=== PATIENT | male | born 1935 | race Caucasian/White ===

== ENCOUNTER 2019-11-23 13:17 | Emergency (ER) | payer MEDICARE, BC ==
[2019-11-23] MEDS ORDERED: Sulfamethoxazole/Trimethoprim 800-160 MG Tab PO ONE (14:05)
--- NOTE | 2019-11-23 14:11 | EDM.PDOC ---
ED HPI GENERAL MEDICAL PROBLEM - General Chief Complaint: Eye Problems Stated Complaint: EYES CHECKED FOR INFECTION Time Seen by Provider: 11/23/19 13:50 Source of Information: Reports: Patient, RN. 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 He was given a couple days of cephalexin earlier, he is not on this now. He doesn't think the actual surgical wound looks that much different. He denies fevers. He tried unsuccessfully to reach the doctor who did his surgery. Onset: Gradual Duration: Day(s): (1+), Getting Worse Location: Reports: Head, Face Quality: Reports: Other (Denies pain) Severity: Mild Improves with: Reports: None Worsens with: Reports: Other (time) Context: Reports: Other (See HPI) Associated Symptoms: Reports: No Other Symptoms. Denies: Fever/Chills Treatments DIRECTOR OF STUDENT FINANCIAL SERVICES: Reports: Other (see below) (none) ED ROS GENERAL - Review of Systems Review Of Systems: See Below Constitutional: Reports: No Symptoms. Denies: Fever, Chills HEENT: Reports: No Symptoms Respiratory: Reports: No Symptoms Cardiovascular: Reports: No Symptoms Skin: Reports: Erythema (around scalp surgical wound site.), Wound (surgical on anterior scalp) ED EXAM GENERAL W FULL EYE - Physical Exam Exam: See Below Exam Limited By: No Limitations General Appearance: Alert, WD/WN, No Apparent Distress Eye Exam: Bilateral Eye: Normal Inspection, PERRL, Other (Really don't see any significant periorbital edema) Eyelids: Bilateral: Normal Appearance Ears: Normal External Exam, Normal Canal, Hearing Grossly Normal Nose: Normal Inspection, No Blood Throat/Mouth: Normal Inspection Head: Other (there is surrounding redness at site of surgical incision anterior scalp. Posteriorly this area looks/feels puffy. ) ED EYE w/ Add Procedure - Additional/Other Procedure(s) Other (Free Text) Procedure(s) [Text1]: I attempted to aspirate the area of puffiness on the back half of his surgical wound after betadine prep. No fluid was successfully aspirated, however. Course - Vital Signs Last Recorded V/S: Last Vital Signs Temp 36.6 C 11/23/19 13:45 Pulse 59 L 11/23/19 13:45 Resp 17 11/23/19 13:45 BP 137/68 11/23/19 13:45 Pulse Ox 97 11/23/19 13:45 - Orders/Labs/Meds Orders: Active Orders 24 hr Category Date Time Status Sulfamethoxazole/Trimethoprim [Septra DS] Med 11/23/19 14:05 Once 1 tab PO ONETIME ONE Departure - Departure Time of Disposition: 14:15 Disposition: Home, Self-Care 01 Condition: Fair Clinical Impression: Infection of scalp - Discharge Information *PRESCRIPTION DRUG MONITORING PROGRAM REVIEWED*: Not Applicable *COPY OF PRESCRIPTION DRUG MONITORING REPORT IN PATIENT TREE: Not Applicable Referrals: Néstor Vasquez MD [Primary Care Provider] - Additional Instructions: Take TMP/SMZ every 12 hrs for infection control. Use acetaminophen for pain relief. Keep warm compresses on area several times per day. Call your doctor in [place] who did your surgery to report your situation on Sunday. Return if worse in the interim. Sepsis Event Note (ED) - Evaluation Sepsis Screening Result: No Definite Risk - Focused Exam Vital Signs: Vital Signs Temp Pulse Resp BP Pulse Ox 11/23/19 13:45 36.6 C 59 L 17 137/68 97 - My Orders Last 24 Hours: My Active Orders 11/23/19 14:05 Sulfamethoxazole/Trimethoprim [Septra DS] 1 tab PO ONETIME ONE - Assessment/Plan Last 24 Hours: My Active Orders 11/23/19 14:05 Sulfamethoxazole/Trimethoprim [Septra DS] 1 tab PO ONETIME ONE
== END 2019-11-23 14:22 | disposition home or self-care (01) ==
LOC: FB.ED 13:17
DX: T81.40XA Infection following a procedure, unspecified, initial encounter (principal)
CPT/HCPCS: 99283; A9270

== ENCOUNTER 2020-03-16 13:54 | Emergency (ER) | payer MEDICARE, BC ==
--- NOTE | 2020-03-16 15:13 | EDM.PDOC ---
ED HPI GENERAL MEDICAL PROBLEM - General Chief Complaint: Gastrointestinal Problem Stated Complaint: constipation Time Seen by Provider: 03/16/20 14:45 Source of Information: Reports: Patient History Limitations: Reports: No Limitations - History of Present Illness INITIAL COMMENTS - FREE TEXT/NARRATIVE: pt states he has had problems with bowels for a long time , has used multiple medications OTC and symptoms not improving this time has not had BM for ? 3 weeks no vomiting has nausea minimal abd pain States he has not used supposity or enema recently Onset: Today, Gradual Onset Date: 02/24/20 Duration: Waxing/Waning Location: Reports: Abdomen Quality: Reports: Ache, Dull Severity: Moderate Improves with: Reports: None Worsens with: Reports: None Treatments MANAGER DIABETES: Reports: Other (see below) - Related Data Allergies Allergy/AdvReac Type Severity Reaction Status Date / Time No Known Allergies Allergy Verified 11/23/19 19:37 Home Meds: Home Meds Sulfamethoxazole/Trimethoprim [Bactrim Ds Tablet] 1 each PO Q12H #14 tablet 11/23/19 [Rx] Magnesium Citrate 296 ml PO ONETIME #296 solution 03/16/20 [Rx] bisacodyL [Dulcolax] 10 mg RC BEDTIME #30 supp.rect 03/16/20 [Rx] Past Medical History Cardiovascular History: Reports: Hypertension Respiratory History: Reports: Other (See Below) Other Respiratory History: former smoker since he was 16 years old. Genitourinary History: Reports: Other (See Below) Other Genitourinary History: prostate cancer. Oncologic (Cancer) History: Reports: Prostate, Other (See Below) Other Oncologic History: melanoma Dermatologic History: Reports: Melanoma Social & Family History - Family History Family Medical History: No Pertinent Family History - Caffeine Use Caffeine Use: Reports: Coffee, Soda ED ROS GENERAL - Review of Systems Review Of Systems: See Below Constitutional: Reports: No Symptoms HEENT: Reports: No Symptoms Respiratory: Reports: No Symptoms Cardiovascular: Reports: No Symptoms Endocrine: Reports: No Symptoms GI/Abdominal: Reports: Constipation, Decreased Appetite, Flatus. Denies: Abdominal Pain, Anorexia, Diarrhea : Reports: No Symptoms Musculoskeletal: Reports: No Symptoms Skin: Reports: No Symptoms Neurological: Reports: No Symptoms Psychiatric: Reports: No Symptoms ED EXAM, GI/ABD - Physical Exam Exam: See Below Exam Limited By: No Limitations General Appearance: Alert, WD/WN, No Apparent Distress Eyes: Bilateral: Abnormal EOM Ears: Normal External Exam Nose: Normal Inspection Throat/Mouth: Normal Oropharynx Head: Atraumatic, Normocephalic Neck: Supple, Non-Tender Respiratory/Chest: Lungs Clear, No Accessory Muscle Use Cardiovascular: Regular Rate, Rhythm, No JVD GI/Abdominal Exam: Soft, Non-Tender, Abnormal Bowel Sounds (hypoactive bowel sounds). No: Guarding, Rigid Neurological: Alert, Oriented, CN II-XII Intact Psychiatric: Normal Affect Skin Exam: Dry, Intact Course - Orders/Labs/Meds Meds: Medications Discontinued Medications Generic Name Dose Route Start Last Admin Trade Name Freq PRN Reason Stop Dose Admin Bisacodyl 10 mg 03/16/20 15:12 03/16/20 15:44 Dulcolax RECTAL 03/16/20 15:13 10 mg ONETIME ONE Administration Mineral Oil 133 ml 03/16/20 15:12 03/16/20 16:35 Mineral Oil Enema RECTAL 03/16/20 15:13 1 bottle ONETIME ONE Administration - Re-Assessments/Exams Free Text/Narrative Re-Assessment/Exam: 03/16/20 17:13 pt was given a suppository initially , was not able to go , then he was given a mineral oil enema , was able to go a small amount had no abd pain , no nausea or vomiting pt was encouraged to get mag citrate and take orally , use dulcolax supp at bedtime He did get some relieve before discharge Departure - Departure Time of Disposition: 17:17 Disposition: Home, Self-Care 01 Condition: Fair Clinical Impression: Constipation by delayed colonic transit - Discharge Information *PRESCRIPTION DRUG MONITORING PROGRAM REVIEWED*: Not Applicable *COPY OF PRESCRIPTION DRUG MONITORING REPORT IN PATIENT TREE: Not Applicable Prescriptions: Magnesium Citrate 296 ml PO ONETIME #296 solution Instructions: Constipation, Adult, [id number], Chronic Constipation Referrals: Néstor Vasquez MD [Primary Care Provider] - Forms: ED Department Discharge Additional Instructions: 1) Increase fiber intake with carrot puree and green apple smoothies 2) Use Dulcolax suppository once at bedtime daily 3) discuss further with your PCP
[2020-03-16] MEDS: Bisacodyl 10 MG Supp RECTAL ONE (15:44)
[2020-03-16] MEDS: Mineral Oil 133 ML BOTTLE RECTAL ONE (16:35)
--- NOTE | 2020-03-16 16:47 | CR ---
INDICATION: Constipation for 3 weeks. ABDOMEN TWO VIEW: Five images of the abdomen in supine and upright projections were obtained 03/16/[address] scan of the abdomen of 12/29/07. The pattern of gas and feces is fairly nonspecific. Relatively moderate amount of stool is noted in the colon with no evidence of a mechanically obstructive process or gross free air. No mass lesions or organomegaly were identified. What appeared to be 3 clips are noted in the area of the prostate. IMPRESSION: Nonacute abdomen. MTDD
== END 2020-03-16 17:15 | disposition home or self-care (01) ==
LOC: FB.ED 13:54
DX: K59.01 Slow transit constipation (principal); I10 Essential (primary) hypertension; Z87.891 Personal history of nicotine dependence
CPT/HCPCS: 74019; 99283; A9270-GY

== ENCOUNTER 2020-04-04 15:30 | Inpatient (IN) | payer MEDICARE, BC ==
[2020-04-04] MEDS ORDERED: HYDROmorphone 2 MG/ML SDV IVPUSH ONE ×3 (16:35→20:54)
[2020-04-04] MEDS ORDERED: Ondansetron 4 MG/2 ML SDV IVPUSH ONE (16:35)
[2020-04-04] MEDS ORDERED: Sodium Chloride 0.9% 1,000 ML IV ONE (16:35)
--- NOTE | 2020-04-04 18:15 | EDM.PDOC ---
ED HPI GENERAL MEDICAL PROBLEM - General Chief Complaint: General Stated Complaint: FELL Time Seen by Provider: 04/04/20 16:00 Source of Information: Reports: Patient History Limitations: Reports: No Limitations - History of Present Illness INITIAL COMMENTS - FREE TEXT/NARRATIVE: c/o LBP on right pt with fall yesterday, in bedroom leaning against wall, sat down, however he thought the bed was behind him and it was not, has had persisted pain in the R lower back in the midscapular line without radiation has picked up 90 tabs of hc/apap 10/325 mg in the past 9d, pain was still 6/10 on arrival at ED, altho resolved almost completely after Dilaudid 0.5 mg IV pt given 1 liters NS as skin turgor was dec'd old CT images of abd/pelvis from 2m ago showed a large blastic lesion at L4 pt states he has prostate cancer 1y with bone meds, sees oncology in [place], getting Envase IV q3w Lower Back Pain Score (Numeric/FACES): 5 - Related Data Allergies Allergy/AdvReac Type Severity Reaction Status Date / Time No Known Allergies Allergy Verified 11/23/19 19:37 Home Meds: Home Meds Aspirin [Adult Low Dose Aspirin EC] 81 mg PO DAILY 04/05/20 [History] Hydrocodone/Acetaminophen [Hydrocodon-Acetaminophn 10-325] 1 tab PO Q6H PRN 04/05/20 [History] Lactulose 20 gm PO BID PRN 04/05/20 [History] Metoprolol Tartrate 50 mg PO BID 04/05/20 [History] atorvaSTATin [Lipitor] 20 mg PO BEDTIME 04/05/20 [History] Past Medical History Cardiovascular History: Reports: Hypertension Respiratory History: Reports: Other (See Below) Other Respiratory History: former smoker since he was 16 years old. Genitourinary History: Reports: Other (See Below) Other Genitourinary History: prostate cancer. Oncologic (Cancer) History: Reports: Liver, Lung, Prostate, Other (See Below) Other Oncologic History: melanoma Dermatologic History: Reports: Melanoma - Infectious Disease History Infectious Disease History: Reports: Chicken Pox Social & Family History - Family History Family Medical History: No Pertinent Family History - Caffeine Use Caffeine Use: Reports: Coffee ED ROS GENERAL - Review of Systems Review Of Systems: See Below Constitutional: Reports: No Symptoms HEENT: Reports: No Symptoms Respiratory: Reports: No Symptoms Cardiovascular: Reports: No Symptoms Endocrine: Reports: No Symptoms GI/Abdominal: Reports: No Symptoms : Reports: No Symptoms Musculoskeletal: Reports: Back Pain Skin: Reports: No Symptoms Neurological: Reports: No Symptoms Psychiatric: Reports: No Symptoms Hematologic/Lymphatic: Reports: No Symptoms Immunologic: Reports: No Symptoms ED EXAM, GENERAL - Physical Exam Exam: See Below Exam Limited By: No Limitations General Appearance: Alert, WD/WN, No Apparent Distress Nose: Normal Inspection, Normal Mucosa Throat/Mouth: Normal Inspection, Normal Lips, Normal Teeth, Normal Gums, Normal Oropharynx Head: Atraumatic, Normocephalic Neck: Normal Inspection, Supple, Non-Tender, Full Range of Motion Respiratory/Chest: No Respiratory Distress, Lungs Clear, Normal Breath Sounds, No Accessory Muscle Use Cardiovascular: Regular Rate, Rhythm, No Edema GI/Abdominal: Soft, Non-Tender, No Distention Back Exam: Normal Inspection, Full Range of Motion Extremities: Normal Inspection, Non-Tender, Other (dec'd turgor UEs with 0.5 sec tenting b/l) Neurological: Alert, Oriented, CN II-XII Intact, Normal Cognition, No Motor/Sensory Deficits Psychiatric: Normal Affect Skin Exam: Warm, Dry, Intact, Normal Color, No Rash Lymphatic: No Adenopathy Course - Vital Signs Last Recorded V/S: Last Vital Signs Temp 36.6 C 04/05/20 13:00 Pulse 98 04/05/20 13:00 Resp 18 04/05/20 13:00 BP 122/65 04/05/20 13:00 Pulse Ox 93 L 04/05/20 13:00 - Orders/Labs/Meds Orders: Active Orders 24 hr Category Date Time Status Admission Status [Patient Status] [ADT] Routine ADT 04/04/20 19:01 Active Lumbar Spine wo Cont [CT] Stat Exams 04/04/20 17:17 Taken Sodium Chloride 0.9% [Saline Flush] Med 04/04/20 19:13 Active 10 ml FLUSH ASDIRECTED PRN Medication Orders Acetaminophen (Tylenol) 650 mg PO Q6H MELANIE Last Admin: 04/05/20 14:26 Dose: 650 mg Documented by: DIFFCAL Aspirin (Halfprin) 81 mg PO DAILY MELANIE Atorvastatin Calcium (Lipitor) 20 mg PO BEDTIME MELANIE Cyclobenzaprine HCl (Flexeril) 5 mg PO TID PRN PRN Reason: Muscle Spasm Dexamethasone (Dexamethasone) 4 mg PO DAILY [facility] Last Admin: 04/05/20 09:21 Dose: 4 mg Documented by: ALEAH Enoxaparin Sodium (Lovenox) 30 mg SUBCUT Q24H [facility] Last Admin: 04/04/20 21:41 Dose: 30 mg Documented by: CHIP Fentanyl (Duragesic) 12 mcg TRDERM Q72H [facility] Last Admin: 04/05/20 09:21 Dose: 12 mcg Documented by: ALEAH Dextrose/Sodium Chloride (Dextrose 5%-1/2 Ns) 1,000 mls @ 75 mls/hr IV ASDIRECTED [facility] Last Admin: 04/04/20 21:40 Dose: 75 mls/hr Documented by: CHIP Magnesium Hydroxide (Milk Of Magnesia) 30 ml PO Q12H PRN PRN Reason: Constipation Metoprolol Tartrate (Lopressor) 50 mg PO BID [facility] Morphine Sulfate (Morphine 10 Mg/0.5 Ml Oral Syringe) 5 mg SL Q2H PRN PRN Reason: SEVERE PAIN (7-10/10) Ondansetron HCl (Zofran) 4 mg IV Q4H PRN PRN Reason: Nausea/Vomiting Senna/Docusate Sodium (Senna Plus) 1 tab PO BID [facility] Last Admin: 04/05/20 11:02 Dose: 1 tab Documented by: ALEAH Sodium Chloride (Saline Flush) 10 ml FLUSH ASDIRECTED PRN PRN Reason: Keep Vein Open Last Admin: 04/04/20 19:13 Dose: 10 ml Documented by: JANETTE Labs: Laboratory Tests 04/04/20 04/04/20 04/04/20 Range/Units 16:45 16:45 16:45 WBC 6.0 (3.2-10.1) x10-3/uL RBC 3.66 L (3.90-5.90) x10(6)uL Hgb 10.3 L (12.9-17.7) g/dL Hct 32.8 L (38.3-50.1) % MCV 89.8 (80.8-98.7) fL MCH 28.2 (27.0-33.3) pg MCHC 31.4 (28.7-35.3) g/dL RDW 16.5 H (12.4-15.0) % Plt Count 309 (117-477) x10(3)uL MPV 7.7 (6.7-11.0) fL Neut % (Auto) 76.4 H (40.3-71.8) % Lymph % (Auto) 4.8 L (15.8-45.3) % Cedar % (Auto) 17.8 H (5.5-15.2) % Eos % (Auto) 0.7 (0.1-6.8) % Baso % (Auto) 0.3 (0.3-3.8) % Neut # (Auto) 4.6 (1.7-6.9) x10-3/uL Lymph # (Auto) 0.3 L (0.5-4.5) x10-3/uL Cedar # (Auto) 1.1 (0.0-1.2) x10-3/uL Eos # (Auto) 0.0 (0.0-0.6) x10-3/uL Baso # (Auto) 0.0 (0.0-0.3) x10-3/uL Sodium 136 (135-145) mmol/L Potassium 4.5 (3.5-5.3) mmol/L Chloride 103 (100-110) mmol/L Carbon Dioxide 23 (21-32) mmol/L BUN 25 H (7-18) mg/dL Creatinine 2.4 H* (0.70-1.30) mg/dL Est Cr Clr Drug Dosing TNP Estimated GFR (MDRD) 26 L (>60) BUN/Creatinine Ratio 10.4 (9-20) Glucose 107 (80-116) mg/dL Calcium 8.4 L (8.6-10.2) mg/dL Total Bilirubin 0.4 (0.1-1.3) mg/dL AST 25 (5-25) IU/L ALT 18 (12-36) U/L Alkaline Phosphatase 72 (56-112) IU/L C-Reactive Protein 8.7 H* (0.5-0.9) mg/dL Total Protein 7.1 (6.0-8.0) g/dL Albumin 2.9 L (3.2-4.6) g/dL Globulin 4.2 g/dL Albumin/Globulin Ratio 0.7 SARS-CoV-2 RNA (ERIK) (NEGATIVE) 04/04/20 Range/Units 19:05 WBC (3.2-10.1) x10-3/uL RBC (3.90-5.90) x10(6)uL Hgb (12.9-17.7) g/dL Hct (38.3-50.1) % MCV (80.8-98.7) fL MCH (27.0-33.3) pg MCHC (28.7-35.3) g/dL RDW (12.4-15.0) % Plt Count (117-477) x10(3)uL MPV (6.7-11.0) fL Neut % (Auto) (40.3-71.8) % Lymph % (Auto) (15.8-45.3) % Cedar % (Auto) (5.5-15.2) % Eos % (Auto) (0.1-6.8) % Baso % (Auto) (0.3-3.8) % Neut # (Auto) (1.7-6.9) x10-3/uL Lymph # (Auto) (0.5-4.5) x10-3/uL Cedar # (Auto) (0.0-1.2) x10-3/uL Eos # (Auto) (0.0-0.6) x10-3/uL Baso # (Auto) (0.0-0.3) x10-3/uL Sodium (135-145) mmol/L Potassium (3.5-5.3) mmol/L Chloride (100-110) mmol/L Carbon Dioxide (21-32) mmol/L BUN (7-18) mg/dL Creatinine (0.70-1.30) mg/dL Est Cr Clr Drug Dosing Estimated GFR (MDRD) (>60) BUN/Creatinine Ratio (9-20) Glucose (80-116) mg/dL Calcium (8.6-10.2) mg/dL Total Bilirubin (0.1-1.3) mg/dL AST (5-25) IU/L ALT (12-36) U/L Alkaline Phosphatase (56-112) IU/L C-Reactive Protein (0.5-0.9) mg/dL Total Protein (6.0-8.0) g/dL Albumin (3.2-4.6) g/dL Globulin g/dL Albumin/Globulin Ratio SARS-CoV-2 RNA (ERIK) Negative (NEGATIVE) Meds: Medications Generic Name Dose Route Start Last Admin Trade Name Freq PRN Reason Stop Dose Admin Acetaminophen 650 mg 04/05/20 15:00 04/05/20 14:26 Tylenol PO 650 mg Q6H MELANIE Administration Aspirin 81 mg 04/06/20 09:00 Halfprin PO DAILY [facility] Atorvastatin Calcium 20 mg 04/05/20 21:00 Lipitor PO BEDTIME MELANIE Cyclobenzaprine HCl 5 mg 04/05/20 08:34 Flexeril PO TID PRN Muscle Spasm Dexamethasone 4 mg 04/05/20 09:00 04/05/20 09:21 Dexamethasone PO 4 mg DAILY MELANIE Administration Enoxaparin Sodium 30 mg 04/04/20 21:30 04/04/20 21:41 Lovenox SUBCUT 30 mg Q24H MELANIE Administration Fentanyl 12 mcg 04/05/20 09:00 04/05/20 09:21 Duragesic TRDERM 12 mcg Q72H MELANIE Administration Dextrose/Sodium Chloride 1,000 mls @ 75 mls/hr 04/04/20 21:00 04/04/20 21:40 Dextrose 5%-1/2 Ns IV 75 mls/hr ASDIRECTED MELANIE Administration Magnesium Hydroxide 30 ml 04/04/20 20:58 Milk Of Magnesia PO Q12H PRN Constipation Metoprolol Tartrate 50 mg 04/05/20 21:00 Lopressor PO BID MELANIE Morphine Sulfate 5 mg 04/05/20 08:38 Morphine 10 Mg/0.5 Ml Oral Syringe SL Q2H PRN SEVERE PAIN (7-10/10) Ondansetron HCl 4 mg 04/04/20 20:58 Zofran IV Q4H PRN Nausea/Vomiting Senna/Docusate Sodium 1 tab 04/05/20 10:00 04/05/20 11:02 Senna Plus PO 1 tab BID MELANIE Administration Sodium Chloride 10 ml 04/04/20 19:13 04/04/20 19:13 Saline Flush FLUSH 10 ml ASDIRECTED PRN Administration Keep Vein Open Discontinued Medications Generic Name Dose Route Start Last Admin Trade Name Otilio PRN Reason Stop Dose Admin Acetaminophen 1,000 mg 04/04/20 21:00 04/05/20 01:37 Tylenol PO Not Given QID MELANIE Acetaminophen 1,000 mg 04/04/20 21:00 04/05/20 09:22 Tylenol Extra Strength PO 1,000 mg Q6H MELANIE Administration Bisacodyl 10 mg 04/05/20 09:45 Dulcolax RECTAL 04/05/20 09:46 ONETIME ONE Cyclobenzaprine HCl 5 mg 04/04/20 21:00 04/04/20 21:40 Flexeril PO 5 mg TID [facility] Administration Hydromorphone HCl 0.5 mg 04/04/20 16:35 04/04/20 16:47 Dilaudid IVPUSH 04/04/20 16:36 0.5 mg ONETIME ONE Administration Hydromorphone HCl 0.5 mg 04/04/20 19:03 04/04/20 19:12 Dilaudid IVPUSH 04/04/20 19:04 0.5 mg ONETIME ONE Administration Hydromorphone HCl 0.5 mg 04/04/20 20:54 04/04/20 21:14 Dilaudid IVPUSH 04/04/20 20:55 0.5 mg ONETIME ONE Administration Hydromorphone HCl 0.5 mg 04/04/20 20:58 Dilaudid IVPUSH Q2H PRN Pain (severe 7-10) Sodium Chloride 1,000 mls @ 999 mls/hr 04/04/20 16:35 04/04/20 16:48 Normal Saline IV 04/04/20 17:35 999 mls/hr .BOLUS ONE Administration Ondansetron HCl 4 mg 04/04/20 16:35 04/04/20 16:48 Zofran IVPUSH 04/04/20 16:36 4 mg ONETIME ONE Administration Oxycodone HCl 5 mg 04/04/20 21:00 04/05/20 01:36 Oxycodone PO Not Given QID [facility] Oxycodone HCl 5 mg 04/04/20 22:00 04/05/20 03:17 Oxycodone PO 5 mg Q6H [facility] Administration Zolpidem Tartrate 5 mg 04/04/20 20:58 Ambien PO BEDTIME PRN Sleep - Re-Assessments/Exams Free Text/Narrative Re-Assessment/Exam: 04/04/20 19:[address] of l-spine reviewed, no acute fx on l-spine, 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, seen before on CT 2m ago pt said he cannot go home, pain is too severe, pain 2/10 at rest, inc to 9/10 when he moves, does not think he can stand, much less walk, looks uncomfortable d/w so [facility] at [phone], his sister Tara was with him (who had called as well) Reyes lives near pt but not with him, Tara lives in [place] no plans currently for halfway management CT chest 2m ago did show a spiculated mass in RUL along with another mass just above the R hilum as per Reyes the lung CA is thought to be a primary with met to L4 coming from the lung per Reyes, dx with lung CA "this fall" and dx with prostate CA 1y ago Departure - Departure Time of Disposition: 19:03 Disposition: Home, Self-Care 01 Condition: Fair Clinical Impression: Acute low back pain due to trauma, Moderate dehydration, Acute renal insufficiency, Lung cancer, Prostate cancer, Bone metastases, Hypoalbuminemia, Elevated C-reactive protein - Discharge Information *PRESCRIPTION DRUG MONITORING PROGRAM REVIEWED*: Yes *COPY OF PRESCRIPTION DRUG MONITORING REPORT IN PATIENT TREE: No Sepsis Event Note (ED) - Evaluation Sepsis Screening Result: No Definite Risk - My Orders Last 24 Hours: My Active Orders 04/04/20 17:17 Lumbar Spine wo Cont [CT] Stat 04/04/20 19:01 Admission Status [Patient Status] [ADT] Routine 04/04/20 19:13 Sodium Chloride 0.9% [Saline Flush] 10 ml FLUSH ASDIRECTED PRN - Assessment/Plan Last 24 Hours: My Active Orders 04/04/20 17:17 Lumbar Spine wo Cont [CT] Stat 04/04/20 19:01 Admission Status [Patient Status] [ADT] Routine 04/04/20 19:13 Sodium Chloride 0.9% [Saline Flush] 10 ml FLUSH ASDIRECTED PRN
[2020-04-04] MEDS ORDERED: Sodium Chloride 0.9% 10 ML Syringe FLUSH PRN (19:13)
[2020-04-04] MEDS ORDERED: HYDROmorphone 2 MG/ML SDV IVPUSH PRN (20:58)
[2020-04-04] MEDS ORDERED: Zolpidem 5 MG Tab PO PRN (20:58)
[2020-04-04] MEDS ORDERED: Magnesium Hydroxide 400 MG/5 ML Susp 30 ML Cup PO PRN (20:58)
[2020-04-04] MEDS ORDERED: Ondansetron 4 MG/2 ML SDV IV PRN (20:58)
[2020-04-04] MEDS ORDERED: Acetaminophen 325 MG Tab PO SCH (21:00)
[2020-04-04] MEDS ORDERED: Cyclobenzaprine 10 MG Tab PO SCH (21:00)
[2020-04-04] MEDS ORDERED: oxyCODONE 5 MG Tab PO SCH (21:00)
[2020-04-04] MEDS ORDERED: Dextrose 5%-0.45% NaCl 1,000 ML IV SCH (21:00)
[2020-04-04] MEDS: Enoxaparin 30 MG/0.3 ML Syringe SUBCUT SCH (21:41)
[2020-04-04] MEDS: oxyCODONE 5 MG Tab PO SCH (21:42)
[2020-04-04] MEDS: Acetaminophen 500 MG Tab PO SCH (21:43)
[2020-04-05] MEDS: oxyCODONE 5 MG Tab PO SCH (03:17)
[2020-04-05] MEDS: Acetaminophen 500 MG Tab PO SCH ×2 (03:17→09:22)
[2020-04-05] MEDS ORDERED: Morphine 10 MG/0.5 ML Oral Syringe SL PRN (08:38)
[2020-04-05] MEDS ORDERED: fentaNYL 12 MCG/HR Transdermal Patch TRDERM SCH (09:00)
[2020-04-05] MEDS: Dexamethasone 4 MG Tab PO SCH (09:21)
[2020-04-05] MEDS ORDERED: Bisacodyl 10 MG Supp RECTAL ONE (09:45)
--- NOTE | 2020-04-05 10:05 | PCM.HP.2 ---
H&P History of Present Illness - General Date of Service: 04/05/20 Admit Problem/Dx: Admission Diagnosis/Problem Admission Diagnosis/Problem Low back pain without sciatica Source of Information: Patient, EMS Notes Reviewed - History of Present Illness Initial Comments - Free Text/Narative: Leonardo had fallen on Sunday, thought the bed was behind him and was not, came in by ambulance to ER because pain and could not walk. He has history of prostate cancer, had radiation. Was diagnosed with stage 4 Lung cancer Feb 2019, mets to the bone specifically L4 vertebrae was found about 2 months ago. He is getting Envase every 3 weeks per ER, Henry states its been a couple of months, and last 6-7 days. He does have some trouble with dates he said. He denies any headaches, nasal congestion, sore throat, cough, shortness of breath, chest pain. No nausea or vomiting. Has been constipated, last bowel movement was been about 5 days. Uses Lactulose sporadically, states he gets better results from enemas. Denies any rashes currently. No frequency, dysuria or hematuria. Some peripheral edema in his ankles which states is chronic. He lives at home alone, his children all have families of their own, so he is not sure if they can help him at home or not. Lower Back Pain Score (Numeric/FACES): 6 - Related Data Allergies/Adverse Reactions: Allergies Allergy/AdvReac Type Severity Reaction Status Date / Time No Known Allergies Allergy Verified 11/23/19 19:37 Home Medications: Home Meds Aspirin [Adult Low Dose Aspirin EC] 81 mg PO DAILY 04/05/20 [History] Hydrocodone/Acetaminophen [Hydrocodon-Acetaminophn 10-325] 1 tab PO Q6H PRN 04/05/20 [History] Lactulose 20 gm PO BID PRN 04/05/20 [History] Metoprolol Tartrate 50 mg PO BID 04/05/20 [History] atorvaSTATin [Lipitor] 20 mg PO BEDTIME 04/05/20 [History] Past Medical History Other HEENT History: wears glasses Cardiovascular History: Reports: Hypertension Respiratory History: Reports: Other (See Below) Other Respiratory History: former smoker since he was 16 years old. Genitourinary History: Reports: Other (See Below) Other Genitourinary History: prostate cancer. Oncologic (Cancer) History: Reports: Liver, Lung, Prostate, Other (See Below) Other Oncologic History: melanoma Dermatologic History: Reports: Melanoma - Infectious Disease History Infectious Disease History: Reports: Chicken Pox Social & Family History - Family History Family Medical History: No Pertinent Family History - Caffeine Use Caffeine Use: Reports: Coffee - Recreational Drug Use Recreational Drug Use: No H&P Review of Systems - Review of Systems: Review Of Systems: Comprehensive ROS is negative, except as noted in HPI. Exam - Exam Exam: See Below - Vital Signs Vital Signs: Last Vital Signs Temp 98 F 04/05/20 03:39 Pulse 94 04/05/20 03:39 Resp 18 04/05/20 03:39 BP 143/78 H 04/05/20 03:39 Pulse Ox 93 L 04/05/20 03:39 Weight: 188 lb 8 oz - Exam General: Alert, Oriented, Cooperative HEENT: PERRLA, Conjunctiva Clear, EOMI, Hearing Intact, Mucosa Moist & [place] Neck: Supple, Trachea Midline. No: Lymphadenopathy Lungs: Clear to Auscultation, Normal Respiratory Effort Cardiovascular: Regular Rate, Regular Rhythm GI/Abdominal Exam: Normal Bowel Sounds, Soft, Non-Tender, No Distention (Male) Exam: Deferred Rectal (Males) Exam: Deferred Extremities: Normal Capillary Refill, Pedal Edema (1+ BLE at ankles) Peripheral Pulses: 2+: Radial (L), Radial (R) Psychiatric: Alert, Normal Affect, Normal Mood - Patient Data Lab Results Last 24 hrs: Laboratory Results - last 24 hr 04/04/20 04/04/20 04/04/20 Range/Units 16:45 16:45 16:45 WBC 6.0 (3.2-10.1) x10-3/uL RBC 3.66 L (3.90-5.90) x10(6)uL Hgb 10.3 L (12.9-17.7) g/dL Hct 32.8 L (38.3-50.1) % MCV 89.8 (80.8-98.7) fL MCH 28.2 (27.0-33.3) pg MCHC 31.4 (28.7-35.3) g/dL RDW 16.5 H (12.4-15.0) % Plt Count 309 (117-477) x10(3)uL MPV 7.7 (6.7-11.0) fL Neut % (Auto) 76.4 H (40.3-71.8) % Lymph % (Auto) 4.8 L (15.8-45.3) % [place] % (Auto) 17.8 H (5.5-15.2) % Eos % (Auto) 0.7 (0.1-6.8) % Baso % (Auto) 0.3 (0.3-3.8) % Neut # (Auto) 4.6 (1.7-6.9) x10-3/uL Lymph # (Auto) 0.3 L (0.5-4.5) x10-3/uL [place] # (Auto) 1.1 (0.0-1.2) x10-3/uL Eos # (Auto) 0.0 (0.0-0.6) x10-3/uL Baso # (Auto) 0.0 (0.0-0.3) x10-3/uL Sodium 136 (135-145) mmol/L Potassium 4.5 (3.5-5.3) mmol/L Chloride 103 (100-110) mmol/L Carbon Dioxide 23 (21-32) mmol/L BUN 25 H (7-18) mg/dL Creatinine 2.4 H* (0.70-1.30) mg/dL Est Cr Clr Drug Dosing TNP Estimated GFR (MDRD) 26 L (>60) BUN/Creatinine Ratio 10.4 (9-20) Glucose 107 (80-116) mg/dL Calcium 8.4 L (8.6-10.2) mg/dL Total Bilirubin 0.4 (0.1-1.3) mg/dL AST 25 (5-25) IU/L ALT 18 (12-36) U/L Alkaline Phosphatase 72 (56-112) IU/L C-Reactive Protein 8.7 H* (0.5-0.9) mg/dL Total Protein 7.1 (6.0-8.0) g/dL Albumin 2.9 L (3.2-4.6) g/dL Globulin 4.2 g/dL Albumin/Globulin Ratio 0.7 Urine Color (YELLOW) Urine Appearance (CLEAR) Urine pH (5.0-6.5) Ur Specific Tyler (1.010-1.025) Urine Protein (NEGATIVE) mg/dL Urine Glucose (UA) (NORMAL) mg/dL Urine Ketones (NEGATIVE) mg/dL Urine Occult Blood (NEGATIVE) Urine Nitrite (NEGATIVE) Urine Bilirubin (NEGATIVE) Urine Urobilinogen (NEGATIVE) mg/dL Ur Leukocyte Esterase (NEGATIVE) Urine RBC (0-5) Urine WBC (0-5) Ur Squamous Epith Cells (NS,R,O) Urine Bacteria (NS) SARS-CoV-2 RNA (ERIK) (NEGATIVE) 04/04/20 04/04/20 04/05/20 Range/Units 19:05 20:00 06:20 WBC 4.4 (3.2-10.1) x10-3/uL RBC 3.08 L (3.90-5.90) x10(6)uL Hgb 8.7 L (12.9-17.7) g/dL Hct 27.7 L (38.3-50.1) % MCV 89.8 (80.8-98.7) fL MCH 28.3 (27.0-33.3) pg MCHC 31.5 (28.7-35.3) g/dL RDW 16.2 H (12.4-15.0) % Plt Count 263 (117-477) x10(3)uL MPV 7.7 (6.7-11.0) fL Neut % (Auto) 63.9 (40.3-71.8) % Lymph % (Auto) 11.5 L (15.8-45.3) % [place] % (Auto) 22.1 H (5.5-15.2) % Eos % (Auto) 2.1 (0.1-6.8) % Baso % (Auto) 0.4 (0.3-3.8) % Neut # (Auto) 2.8 (1.7-6.9) x10-3/uL Lymph # (Auto) 0.5 (0.5-4.5) x10-3/uL [place] # (Auto) 1.0 (0.0-1.2) x10-3/uL Eos # (Auto) 0.1 (0.0-0.6) x10-3/uL Baso # (Auto) 0.0 (0.0-0.3) x10-3/uL Sodium (135-145) mmol/L Potassium (3.5-5.3) mmol/L Chloride (100-110) mmol/L Carbon Dioxide (21-32) mmol/L BUN (7-18) mg/dL Creatinine (0.70-1.30) mg/dL Est Cr Clr Drug Dosing Estimated GFR (MDRD) (>60) BUN/Creatinine Ratio (9-20) Glucose (80-116) mg/dL Calcium (8.6-10.2) mg/dL Total Bilirubin (0.1-1.3) mg/dL AST (5-25) IU/L ALT (12-36) U/L Alkaline Phosphatase (56-112) IU/L C-Reactive Protein (0.5-0.9) mg/dL Total Protein (6.0-8.0) g/dL Albumin (3.2-4.6) g/dL Globulin g/dL Albumin/Globulin Ratio Urine Color Yellow (YELLOW) Urine Appearance Clear (CLEAR) Urine pH 5.0 (5.0-6.5) Ur Specific Tyler 1.015 (1.010-1.025) Urine Protein 30 H (NEGATIVE) mg/dL Urine Glucose (UA) Normal (NORMAL) mg/dL Urine Ketones 15 H (NEGATIVE) mg/dL Urine Occult Blood Moderate H (NEGATIVE) Urine Nitrite Negative (NEGATIVE) Urine Bilirubin Negative (NEGATIVE) Urine Urobilinogen Normal (NEGATIVE) mg/dL Ur Leukocyte Esterase Negative (NEGATIVE) Urine RBC 5-10 H (0-5) Urine WBC 0-5 (0-5) Ur Squamous Epith Cells Few H (NS,R,O) Urine Bacteria Few H (NS) SARS-CoV-2 RNA (ERIK) Negative (NEGATIVE) 04/05/20 Range/Units 06:20 WBC (3.2-10.1) x10-3/uL RBC (3.90-5.90) x10(6)uL Hgb (12.9-17.7) g/dL Hct (38.3-50.1) % MCV (80.8-98.7) fL MCH (27.0-33.3) pg MCHC (28.7-35.3) g/dL RDW (12.4-15.0) % Plt Count (117-477) x10(3)uL MPV (6.7-11.0) fL Neut % (Auto) (40.3-71.8) % Lymph % (Auto) (15.8-45.3) % [place] % (Auto) (5.5-15.2) % Eos % (Auto) (0.1-6.8) % Baso % (Auto) (0.3-3.8) % Neut # (Auto) (1.7-6.9) x10-3/uL Lymph # (Auto) (0.5-4.5) x10-3/uL [place] # (Auto) (0.0-1.2) x10-3/uL Eos # (Auto) (0.0-0.6) x10-3/uL Baso # (Auto) (0.0-0.3) x10-3/uL Sodium 139 (135-145) mmol/L Potassium 4.0 (3.5-5.3) mmol/L Chloride 106 (100-110) mmol/L Carbon Dioxide 24 (21-32) mmol/L BUN 22 H (7-18) mg/dL Creatinine 2.1 H* (0.70-1.30) mg/dL Est Cr Clr Drug Dosing 29.25 Estimated GFR (MDRD) 30 L (>60) BUN/Creatinine Ratio 10.5 (9-20) Glucose 101 (80-116) mg/dL Calcium 7.5 L (8.6-10.2) mg/dL Total Bilirubin (0.1-1.3) mg/dL AST (5-25) IU/L ALT (12-36) U/L Alkaline Phosphatase (56-112) IU/L C-Reactive Protein (0.5-0.9) mg/dL Total Protein (6.0-8.0) g/dL Albumin (3.2-4.6) g/dL Globulin g/dL Albumin/Globulin Ratio Urine Color (YELLOW) Urine Appearance (CLEAR) Urine pH (5.0-6.5) Ur Specific Tyler (1.010-1.025) Urine Protein (NEGATIVE) mg/dL Urine Glucose (UA) (NORMAL) mg/dL Urine Ketones (NEGATIVE) mg/dL Urine Occult Blood (NEGATIVE) Urine Nitrite (NEGATIVE) Urine Bilirubin (NEGATIVE) Urine Urobilinogen (NEGATIVE) mg/dL Ur Leukocyte Esterase (NEGATIVE) Urine RBC (0-5) Urine WBC (0-5) Ur Squamous Epith Cells (NS,R,O) Urine Bacteria (NS) SARS-CoV-2 RNA (ERIK) (NEGATIVE) Result Diagrams: 04/05/20 06:20 04/05/20 06:20 Sepsis Event Note - Evaluation Sepsis Screening Result: No Definite Risk - Focused Exam Vital Signs: Vital Signs Temp Pulse Resp BP Pulse Ox 04/05/20 03:39 98 F 94 18 143/78 H 93 L 04/05/20 00:58 98 F 98 18 120/57 L 94 L *Q Meaningful Use (ADM) - VTE Risk Assess *Q Each Risk Factor Represents 1 Point: None Total Score 1 Point Risk Factors: 0 Each Risk Factor Represents 2 Points: Malignancy (present or previous) Total Score 2 Point Risk Factors: 2 Each Risk Factor Represents 3 Points: Age 75 Years or Greater Total Score 3 Point Risk Factors: 3 Each Risk Factor Represents 5 Points: None Total Score 5 Point Risk Factors: 0 Venous Thromboembolism Risk Factor Score *Q: 5 - Problem List (1) Acute low back pain due to trauma SNOMED Code(s): 797136692 ICD Code: M54.5 - LOW BACK PAIN; G89.11 - ACUTE PAIN DUE TO TRAUMA Status: Acute Current Visit: Yes (2) Acute renal insufficiency SNOMED Code(s): 158500510 ICD Code: N28.9 - DISORDER OF KIDNEY AND URETER, UNSPECIFIED Status: Acute Current Visit: Yes (3) Bone metastases Status: Acute Current Visit: Yes Problem Details: From lung cancer. (4) Elevated C-reactive protein SNOMED Code(s): 669819508113793 ICD Code: R79.82 - ELEVATED C-REACTIVE PROTEIN (CRP) Status: Acute Current Visit: Yes (5) Hypoalbuminemia SNOMED Code(s): 959687735 ICD Code: E88.09 - OTH DISORDERS OF PLASMA-PROTEIN METABOLISM, NEC Status: Acute Current Visit: Yes (6) Lung cancer SNOMED Code(s): 357257293 ICD Code: C34.90 - MALIGNANT NEOPLASM OF UNSP PART OF UNSP BRONCHUS OR LUNG Status: Acute Current Visit: Yes (7) Moderate dehydration SNOMED Code(s): 7367583754582 ICD Code: E86.0 - DEHYDRATION Status: Acute Current Visit: Yes (8) Prostate cancer SNOMED Code(s): 680934128 ICD Code: C61 - MALIGNANT NEOPLASM OF PROSTATE Status: Acute Current Visit: Yes (9) Constipation by delayed colonic transit SNOMED Code(s): 46836581 ICD Code: K59.01 - SLOW TRANSIT CONSTIPATION Status: Acute Current Visit: No Problem List Initiated/Reviewed/Updated: Yes Orders Last 24hrs: Active Orders 24 hr Category Date Time Status Admission Status [Patient Status] [ADT] Routine ADT 04/04/20 19:01 Active EKG Documentation Completion [RC] ASDIRECTED Care 04/04/20 20:33 Active Height and Weight [RC] UPON Care 04/04/20 20:58 Active Oxygen Therapy [RC] PRN Care 04/04/20 20:58 Active Up With Assistance [RC] ASDIRECTED Care 04/04/20 20:58 Active VTE/DVT Education [RC] Per Unit Routine Care 04/04/20 20:58 Active Vital Signs [RC] Q4H Care 04/04/20 20:58 Active Consult to Case Management/Manager Of Change [CONS] Cons 04/04/20 20:58 Active Routine Consult to Lift Slab Operator [CONS] Routine Cons 04/04/20 20:58 Active PT Evaluation and Treatment [CONS] Routine Cons 04/04/20 20:58 Active Regular Diet [DIET] Diet 04/05/20 Breakfast Active Lumbar Spine wo Cont [CT] Stat Exams 04/04/20 17:17 Taken BASIC METABOLIC PANEL,BMP [CHEM] AM Lab 04/06/20 05:11 Ordered CBC WITH AUTO DIFF [HEME] AM Lab 04/06/20 05:11 Ordered Acetaminophen [Tylenol Extra Strength] Med 04/04/20 21:00 Active 1,000 mg PO Q6H Cyclobenzaprine [Flexeril] Med 04/05/20 08:34 Active 5 mg PO TID PRN Dextrose 5%-0.45% NaCl [Dextrose 5%-1/2 NS] 1,000 ml Med 04/04/20 21:00 Active IV ASDIRECTED Docusate Sodium/Sennosides [Senna Plus] Med 04/05/20 10:00 Active 1 tab PO BID Enoxaparin [Lovenox] Med 04/04/20 21:30 Active 30 mg SUBCUT Q24H Magnesium Hydroxide [Milk of Magnesia] Med 04/04/20 20:58 Active 30 ml PO Q12H PRN Morphine [Morphine 10 MG/0.5 ML Oral Syringe] Med 04/05/20 08:38 Active 5 mg SL Q2H PRN Ondansetron [Zofran] Med 04/04/20 20:58 Active 4 mg IV Q4H PRN Sodium Chloride 0.9% [Saline Flush] Med 04/04/20 19:13 Active 10 ml FLUSH ASDIRECTED PRN dexAMETHasone Med 04/05/20 09:00 Active 4 mg PO DAILY fentaNYL [Duragesic] Med 04/05/20 09:00 Active 12 mcg TRDERM Q72H Code Status [Resuscitation Status] Routine Resus Stat 04/05/20 08:40 Ordered EKG 12 Lead [EK] Routine Ther 04/04/20 15:35 Ordered Medication Orders Acetaminophen (Tylenol Extra Strength) 1,000 mg PO Q6H [facility] Last Admin: 04/05/20 09:22 Dose: 1,000 mg Documented by: Admin: 04/05/20 03:17 Dose: 1,000 mg Documented by: Admin: 04/04/20 21:43 Dose: 1,000 mg Documented by: CHIP Cyclobenzaprine HCl (Flexeril) 5 mg PO TID PRN PRN Reason: Muscle Spasm Dexamethasone (Dexamethasone) 4 mg PO DAILY [facility] Last Admin: 04/05/20 09:21 Dose: 4 mg Documented by: ALEAH Enoxaparin Sodium (Lovenox) 30 mg SUBCUT Q24H [facility] Last Admin: 04/04/20 21:41 Dose: 30 mg Documented by: CHIP Fentanyl (Duragesic) 12 mcg TRDERM Q72H [facility] Last Admin: 04/05/20 09:21 Dose: 12 mcg Documented by: ALEAH Dextrose/Sodium Chloride (Dextrose 5%-1/2 Ns) 1,000 mls @ 75 mls/hr IV ASDIRECTED [facility] Last Admin: 04/04/20 21:40 Dose: 75 mls/hr Documented by: CHIP Magnesium Hydroxide (Milk Of Magnesia) 30 ml PO Q12H PRN PRN Reason: Constipation Morphine Sulfate (Morphine 10 Mg/0.5 Ml Oral Syringe) 5 mg SL Q2H PRN PRN Reason: SEVERE PAIN (7-10/10) Ondansetron HCl (Zofran) 4 mg IV Q4H PRN PRN Reason: Nausea/Vomiting Senna/Docusate Sodium (Senna Plus) 1 tab PO BID MELANIE Sodium Chloride (Saline Flush) 10 ml FLUSH ASDIRECTED PRN PRN Reason: Keep Vein Open Last Admin: 04/04/20 19:13 Dose: 10 ml Documented by: JANETTE Assessment/Plan Comment:: 1. Admit to inpatient for fall, intractable pain, dehydration, acute kidney injury. 2. Pain: Fentanyl patch 12 mcg q72h, morphine 5 mg SL q2h as needed, Tylenol 650 mg q6h as needed. Flexeril tid as needed muscle spasms. 3. Constipation: Senna bid, Dulcolax suppository as needed. Will adjust as needed. 4. MICHAEL: Improved, encourage patient drinking today, recheck labs tomorrow. Will check his [facility] chart to get baseline Creatinine. 5. Bone mets: Dexamethasone 4 mg daily. 6. Regular diet. 7. DVT: TEDs BLE, Lovenox 40 mg SQ daily. 8. CODE STATUS: DNR/DNI, Tara Osborn, business case analystBlow Machine Tender Starch Spraying today. Had discussed Home health, Home Health palliative care, hospice, custodial vs assisted living with him, he would like to discuss with exercise planner, also would like to get advance directive set up. - Mortality Measure Prognosis:: Poor
[2020-04-05] MEDS: Acetaminophen 325 MG Tab PO SCH ×2 (14:26→20:24)
[2020-04-05] MEDS: Metoprolol Tartrate 50 MG Tab PO SCH (20:24)
[2020-04-05] MEDS: Cyclobenzaprine 10 MG Tab PO PRN (20:25)
[2020-04-05] MEDS: Enoxaparin 30 MG/0.3 ML Syringe SUBCUT SCH (20:30)
[2020-04-05] MEDS ORDERED: atorvaSTATin 20 MG Tab PO SCH (21:00)
[2020-04-06] MEDS: Cyclobenzaprine 10 MG Tab PO PRN ×2 (02:43→20:01)
[2020-04-06] MEDS: Acetaminophen 325 MG Tab PO SCH ×4 (02:43→20:01)
[2020-04-06] MEDS: Metoprolol Tartrate 50 MG Tab PO SCH ×2 (08:15→20:00)
[2020-04-06] MEDS: Dexamethasone 4 MG Tab PO SCH (08:15)
[2020-04-06] MEDS: Aspirin 81 MG Tab.EC PO SCH (08:15)
--- NOTE | 2020-04-06 15:01 | PCM.PN ---
- General Info Date of Service: 04/06/20 Subjective Update: Had a bowel movement overnight, got up by himself but wouldn't get up for the nurse this morning. Using the urinal rather than calling the nurse. She has removed this from his room to encourage him to get up to the bathroom. His baseline creatinine per [place] chart 1.9-2.0, his creatinine is down to 1.9 today. Fentanyl patch is helping, getting Tylenol but not utilizing his morphine. Advised we want his pain tolerable so he can work with therapy, got to the bathroom so we can get him stronger to go home. He would prefer to go home with services, which family does not want him going to an assisted living or skilled nursing during the pandemic. - Patient Data Vitals - Most Recent: Last Vital Signs Temp 98.1 F 04/06/20 03:28 Pulse 98 04/06/20 08:15 Resp 20 04/06/20 03:28 BP 135/72 04/06/20 08:15 Pulse Ox 94 L 04/06/20 03:28 Weight - Most Recent: 188 lb 8 oz Lab Results Last 24 Hours: Laboratory Results - last 24 hr 04/06/20 04/06/20 Range/Units 06:25 06:25 WBC 5.2 (3.2-10.1) x10-3/uL RBC 3.42 L (3.90-5.90) x10(6)uL Hgb 9.7 L (12.9-17.7) g/dL Hct 30.6 L (38.3-50.1) % MCV 89.3 (80.8-98.7) fL MCH 28.3 (27.0-33.3) pg MCHC 31.7 (28.7-35.3) g/dL RDW 16.6 H (12.4-15.0) % Plt Count 291 (117-477) x10(3)uL MPV 7.9 (6.7-11.0) fL Neut % (Auto) 71.7 (40.3-71.8) % Lymph % (Auto) 9.5 L (15.8-45.3) % [place] % (Auto) 16.3 H (5.5-15.2) % Eos % (Auto) 2.0 (0.1-6.8) % Baso % (Auto) 0.5 (0.3-3.8) % Neut # (Auto) 3.7 (1.7-6.9) x10-3/uL Lymph # (Auto) 0.5 (0.5-4.5) x10-3/uL [place] # (Auto) 0.8 (0.0-1.2) x10-3/uL Eos # (Auto) 0.1 (0.0-0.6) x10-3/uL Baso # (Auto) 0.0 (0.0-0.3) x10-3/uL Sodium 142 (135-145) mmol/L Potassium 4.3 (3.5-5.3) mmol/L Chloride 108 (100-110) mmol/L Carbon Dioxide 25 (21-32) mmol/L BUN 18 (7-18) mg/dL Creatinine 1.9 H (0.70-1.30) mg/dL Est Cr Clr Drug Dosing 32.33 mL/min Estimated GFR (MDRD) 34 L (>60) BUN/Creatinine Ratio 9.5 (9-20) Glucose 90 (80-116) mg/dL Calcium 7.6 L (8.6-10.2) mg/dL Med Orders - Current: Current Medications Acetaminophen (Tylenol) 650 mg PO Q6H [facility] Last Admin: 04/06/20 08:15 Dose: 650 mg Documented by: Aspirin (Halfprin) 81 mg PO DAILY [facility] Last Admin: 04/06/20 08:15 Dose: 81 mg Documented by: Cyclobenzaprine HCl (Flexeril) 5 mg PO TID PRN PRN Reason: Muscle Spasm Last Admin: 04/06/20 02:43 Dose: 5 mg Documented by: Dexamethasone (Dexamethasone) 4 mg PO DAILY [facility] Last Admin: 04/06/20 08:15 Dose: 4 mg Documented by: Enoxaparin Sodium (Lovenox) 30 mg SUBCUT Q24H [facility] Last Admin: 04/05/20 20:30 Dose: 30 mg Documented by: Fentanyl (Duragesic) 12 mcg TRDERM Q72H [facility] Last Admin: 04/05/20 09:21 Dose: 12 mcg Documented by: Dextrose/Sodium Chloride (Dextrose 5%-1/2 Ns) 1,000 mls @ 75 mls/hr IV ASDIRECTED [facility] Last Admin: 04/04/20 21:40 Dose: 75 mls/hr Documented by: Magnesium Hydroxide (Milk Of Magnesia) 30 ml PO Q12H PRN PRN Reason: Constipation Metoprolol Tartrate (Lopressor) 50 mg PO BID [facility] Last Admin: 04/06/20 08:15 Dose: 50 mg Documented by: Morphine Sulfate (Morphine 10 Mg/0.5 Ml Oral Syringe) 5 mg SL Q2H PRN PRN Reason: SEVERE PAIN (7-10/10) Ondansetron HCl (Zofran) 4 mg IV Q4H PRN PRN Reason: Nausea/Vomiting Senna/Docusate Sodium (Senna Plus) 1 tab PO BID [facility] Last Admin: 04/06/20 08:16 Dose: 1 tab Documented by: Sodium Chloride (Saline Flush) 10 ml FLUSH ASDIRECTED PRN PRN Reason: Keep Vein Open Last Admin: 04/04/20 19:13 Dose: 10 ml Documented by: Discontinued Medications Acetaminophen (Tylenol) 1,000 mg PO QID [facility] Last Admin: 04/05/20 01:37 Dose: Not Given Documented by: Acetaminophen (Tylenol Extra Strength) 1,000 mg PO Q6H [facility] Last Admin: 04/05/20 09:22 Dose: 1,000 mg Documented by: Atorvastatin Calcium (Lipitor) 20 mg PO BEDTIME [facility] Last Admin: 04/05/20 20:23 Dose: 20 mg Documented by: Bisacodyl (Dulcolax) 10 mg RECTAL ONETIME ONE Stop: 04/05/20 09:46 Last Admin: 04/05/20 18:55 Dose: 10 mg Documented by: Cyclobenzaprine HCl (Flexeril) 5 mg PO TID [facility] Last Admin: 04/04/20 21:40 Dose: 5 mg Documented by: Hydromorphone HCl (Dilaudid) 0.5 mg IVPUSH ONETIME ONE Stop: 04/04/20 16:36 Last Admin: 04/04/20 16:47 Dose: 0.5 mg Documented by: Hydromorphone HCl (Dilaudid) 0.5 mg IVPUSH ONETIME ONE Stop: 04/04/20 19:04 Last Admin: 04/04/20 19:12 Dose: 0.5 mg Documented by: Hydromorphone HCl (Dilaudid) 0.5 mg IVPUSH ONETIME ONE Stop: 04/04/20 20:55 Last Admin: 04/04/20 21:14 Dose: 0.5 mg Documented by: Hydromorphone HCl (Dilaudid) 0.5 mg IVPUSH Q2H PRN PRN Reason: Pain (severe 7-10) Sodium Chloride (Normal Saline) 1,000 mls @ 999 mls/hr IV .BOLUS ONE Stop: 04/04/20 17:35 Last Admin: 04/04/20 16:48 Dose: 999 mls/hr Documented by: Ondansetron HCl (Zofran) 4 mg IVPUSH ONETIME ONE Stop: 04/04/20 16:36 Last Admin: 04/04/20 16:48 Dose: 4 mg Documented by: Oxycodone HCl (Oxycodone) 5 mg PO QID [facility] Last Admin: 04/05/20 01:36 Dose: Not Given Documented by: Oxycodone HCl (Oxycodone) 5 mg PO Q6H [facility] Last Admin: 04/05/20 03:17 Dose: 5 mg Documented by: Zolpidem Tartrate (Ambien) 5 mg PO BEDTIME PRN PRN Reason: Sleep - Exam General: Alert, Oriented (person, place), Cooperative, No Acute Distress Lungs: Clear to Auscultation, Normal Respiratory Effort Cardiovascular: Regular Rate, Regular Rhythm GI/Abdominal Exam: Normal Bowel Sounds, Soft, Non-Tender, No Distention Extremities: No Pedal Edema Peripheral Pulses: 2+: Radial (L), Radial (R) Sepsis Event Note - Evaluation Sepsis Screening Result: No Definite Risk - Focused Exam Vital Signs: Vital Signs Temp Pulse Pulse Resp BP BP Pulse Ox 04/06/20 08:15 98 135/72 04/06/20 03:28 98.1 F 79 20 154/80 H 94 L - Problem List & Annotations (1) Acute low back pain due to trauma SNOMED Code(s): 868370920 Code(s): M54.5 - LOW BACK PAIN; G89.11 - ACUTE PAIN DUE TO TRAUMA Status: Acute Current Visit: Yes (2) Lung cancer SNOMED Code(s): 762474359 Code(s): C34.90 - MALIGNANT NEOPLASM OF UNSP PART OF UNSP BRONCHUS OR LUNG Status: Acute Current Visit: Yes (3) Bone metastases Status: Acute Current Visit: Yes Annotation/Comment:: From lung cancer. (4) Elevated C-reactive protein SNOMED Code(s): 793646157802736 Code(s): R79.82 - ELEVATED C-REACTIVE PROTEIN (CRP) Status: Acute Current Visit: Yes (5) Hypoalbuminemia SNOMED Code(s): 779235225 Code(s): E88.09 - OTH DISORDERS OF PLASMA-PROTEIN METABOLISM, NEC Status: Acute Current Visit: Yes (6) Moderate dehydration SNOMED Code(s): 3765681691343 Code(s): E86.0 - DEHYDRATION Status: Resolved Current Visit: Yes (7) Prostate cancer SNOMED Code(s): 710923151 Code(s): C61 - MALIGNANT NEOPLASM OF PROSTATE Status: Acute Current Visit: Yes (8) Constipation by delayed colonic transit SNOMED Code(s): 02989666 Code(s): K59.01 - SLOW TRANSIT CONSTIPATION Status: Acute Current Visit: No (9) Acute renal insufficiency SNOMED Code(s): 968098003 Code(s): N28.9 - DISORDER OF KIDNEY AND URETER, UNSPECIFIED Status: Resolved Current Visit: Yes (10) Chronic renal insufficiency, stage III (moderate) SNOMED Code(s): 277023587 Code(s): N18.30 - CHRONIC KIDNEY DISEASE, STAGE 3 UNSPECIFIED Status: Acute Current Visit: Yes - Problem List Review Problem List Initiated/Reviewed/Updated: Yes - My Orders Last 24 Hours: My Active Orders 04/05/20 15:00 Acetaminophen [TylenoL] 650 mg PO Q6H 04/05/20 21:00 Metoprolol Tartrate [Lopressor] 50 mg PO BID 04/06/20 09:00 Aspirin [Halfprin] 81 mg PO DAILY - Plan Plan:: 1. Pain: Fentanyl patch 12 mcg q72h, morphine 5 mg SL q2h as needed, Tylenol 650 mg q6h scheduled. Flexeril tid as needed muscle spasms. 2. Constipation: Senna bid, Dulcolax suppository as needed. Will adjust as needed. 3. MICHAEL: resolved at baseline. encourage patient drinking today. 4. Bone mets: Dexamethasone 4 mg daily. 5. PT/OT: felt he would benefit from swing bed stay. Possibly tomorrow or .
[2020-04-06] MEDS: Enoxaparin 30 MG/0.3 ML Syringe SUBCUT SCH (21:55)
[2020-04-07] MEDS: Acetaminophen 325 MG Tab PO SCH ×2 (02:00→09:37)
[2020-04-07] MEDS: Metoprolol Tartrate 50 MG Tab PO SCH (09:36)
[2020-04-07] MEDS: Aspirin 81 MG Tab.EC PO SCH (09:36)
[2020-04-07] MEDS: Dexamethasone 4 MG Tab PO SCH (09:36)
[2020-04-07] MEDS: Perform Pain Reliever Gel 89 ML Tube TP SCH ×2 (10:00→13:33)
--- NOTE | 2020-04-07 14:30 | PCM.DCSUM1 ---
Discharge Summary - Hospital Course HPI Initial Comments: Leonardo had fallen on Sunday, thought the bed was behind him and was not, came in by ambulance to ER because pain and could not walk. He has history of prostate cancer, had radiation. Was diagnosed with stage 4 Lung cancer Feb 2019, mets to the bone specifically L4 vertebrae was found about 2 months ago. He is getting Envase every 3 weeks per ER, Henry states its been a couple of months, and last 6-7 days. He does have some trouble with dates he said. He denies any headaches, nasal congestion, sore throat, cough, shortness of breath, chest pain. No nausea or vomiting. Has been constipated, last bowel movement was been about 5 days. Uses Lactulose sporadically, states he gets better results from enemas. Denies any rashes currently. No frequency, dysuria or hematuria. Some peripheral edema in his ankles which states is chronic. He lives at home alone, his children all have families of their own, so he is not sure if they can help him at home or not. Diagnosis: Stroke: No - Discharge Data Discharge Date: 04/07/20 Discharge Disposition: DC/Tfer W/I Hosp To Swing 61 Condition: Good - Referral to Home Health Primary Care Physician: Néstor Vasquez MD - Discharge Diagnosis/Problem(s) (1) Acute low back pain due to trauma SNOMED Code(s): 101241104 ICD Code: M54.5 - LOW BACK PAIN; G89.11 - ACUTE PAIN DUE TO TRAUMA Status: Acute Current Visit: Yes (2) Lung cancer SNOMED Code(s): 432041862 ICD Code: C34.90 - MALIGNANT NEOPLASM OF UNSP PART OF UNSP BRONCHUS OR LUNG Status: Acute Current Visit: Yes (3) Bone metastases Status: Acute Current Visit: Yes Problem Details: From lung cancer. (4) Elevated C-reactive protein SNOMED Code(s): 482552714742776 ICD Code: R79.82 - ELEVATED C-REACTIVE PROTEIN (CRP) Status: Acute Current Visit: Yes (5) Hypoalbuminemia SNOMED Code(s): 101654428 ICD Code: E88.09 - OTH DISORDERS OF PLASMA-PROTEIN METABOLISM, NEC Status: Acute Current Visit: Yes (6) Moderate dehydration SNOMED Code(s): 6806284737223 ICD Code: E86.0 - DEHYDRATION Status: Resolved Current Visit: Yes (7) Prostate cancer SNOMED Code(s): 377713562 ICD Code: C61 - MALIGNANT NEOPLASM OF PROSTATE Status: Acute Current Visit: Yes (8) Constipation by delayed colonic transit SNOMED Code(s): 60207229 ICD Code: K59.01 - SLOW TRANSIT CONSTIPATION Status: Acute Current Visit: No (9) Acute renal insufficiency SNOMED Code(s): 927575165 ICD Code: N28.9 - DISORDER OF KIDNEY AND URETER, UNSPECIFIED Status: Resolved Current Visit: Yes (10) Chronic renal insufficiency, stage III (moderate) SNOMED Code(s): 925835259 ICD Code: N18.30 - CHRONIC KIDNEY DISEASE, STAGE 3 UNSPECIFIED Status: Acute Current Visit: Yes - Patient Summary/Data Consults: Consultations 04/04/20 20:58 Consult to Case Management/Ssn/Ssbn Weapons Equipment Operator [CONS] Routine Comment: Physician Instructions: Service(s) to be Consulted: Case Manage&Social Servic Special Instructions: ongoing care issues Consult to Vessel Builder [CONS] Routine Comment: Physician Instructions: Quantity: PT Evaluation and Treatment [CONS] Routine Please Evaluate and Treat. PT Reason for Consult: Ambulation This query below is only for informational purposes and is not editable. Admission Diagnosis/Problem: Low back pain without sciatica Hospital Course: Admitted for intractable back pain secondary to fall and bone mets, dehydration & constipation. He had good bowel movement on 04/05 overnight, pain has been controlled with starting Fentanyl patch 12 mcg q72h, he has taken 1-2 Flexeril daily but has not taken Morphine. He has some pain with getting from supine to sitting then once he gets up he is better, PT/OT evaluated(see notes) and recommended swing bed for further strengthen. On admission he was on IVF, were discontinued the next morning, encouraged oral intake, creatinine improved to 1.9 which is his baseline per his chart. Family would like him to get stronger so he can come home with home health services possibly palliative care. Transfer to swing bed today. - Patient Instructions Diet: Regular Diet as Tolerated Other/Special Instructions: Transfer to swing bed - Discharge Plan *PRESCRIPTION DRUG MONITORING PROGRAM REVIEWED*: Yes *COPY OF PRESCRIPTION DRUG MONITORING REPORT IN PATIENT TREE: No Home Medications: Home Meds Aspirin [Adult Low Dose Aspirin EC] 81 mg PO DAILY 04/05/20 [History] Metoprolol Tartrate 50 mg PO BID 04/05/20 [History] Acetaminophen [Tylenol] 650 mg PO Q6H tablet 04/07/20 [Rx] Cyclobenzaprine [Flexeril] 5 mg PO TID PRN tablet 04/07/20 [Rx] Docusate Sodium/Sennosides [Senna Plus] 1 tab PO BID tablet 04/07/20 [Rx] Magnesium Hydroxide [Milk of Magnesia] 30 ml PO Q12H PRN cup 04/07/20 [Rx] Menthol [Perform Pain Reliever] 0 ml TP QID tube 04/07/20 [Rx] Ondansetron [Zofran] 4 mg IV Q4H PRN vial 04/07/20 [Rx] dexAMETHasone [Dexamethasone] 4 mg PO DAILY tablet 04/07/20 [Rx] fentaNYL [Duragesic] 12 mcg TRDERM Q72H patch 04/07/20 [Rx] Oxygen Therapy Mode: Room Air Forms: ED Department Discharge Referrals: Néstor Vasquez MD [Primary Care Provider] - - Discharge Summary/Plan Comment DC Time >30 min.: No - General Info Date of Service: 04/07/20 Subjective Update: Henry is feeling better, says Flexeril helps but has not tried the morphine at all for his back pain. Feels a little loupy since Fentanyl patch started but pain is much better he would like to keep it. Had bowel movement, drinking and eating well. Functional Status: Reports: Pain Controlled, Tolerating Diet, Ambulating, Urinating - Patient Data Vitals - Most Recent: Last Vital Signs Temp 97.5 F 04/07/20 08:00 Pulse 82 04/07/20 09:36 Resp 18 04/07/20 08:00 BP 133/74 04/07/20 09:36 Pulse Ox 95 04/07/20 08:00 Weight - Most Recent: 188 lb 8 oz Med Orders - Current: Current Medications Acetaminophen (Tylenol) 650 mg PO Q6H [facility] Last Admin: 04/07/20 09:37 Dose: 650 mg Documented by: Aspirin (Halfprin) 81 mg PO DAILY [facility] Last Admin: 04/07/20 09:36 Dose: 81 mg Documented by: Cyclobenzaprine HCl (Flexeril) 5 mg PO TID PRN PRN Reason: Muscle Spasm Last Admin: 04/06/20 20:01 Dose: 5 mg Documented by: Dexamethasone (Dexamethasone) 4 mg PO DAILY [facility] Last Admin: 04/07/20 09:36 Dose: 4 mg Documented by: Enoxaparin Sodium (Lovenox) 30 mg SUBCUT Q24H [facility] Last Admin: 04/06/20 21:55 Dose: 30 mg Documented by: Fentanyl (Duragesic) 12 mcg TRDERM Q72H [facility] Last Admin: 04/05/20 09:21 Dose: 12 mcg Documented by: Dextrose/Sodium Chloride (Dextrose 5%-1/2 Ns) 1,000 mls @ 75 mls/hr IV ASDIRECTED [facility] Last Admin: 04/04/20 21:40 Dose: 75 mls/hr Documented by: Magnesium Hydroxide (Milk Of Magnesia) 30 ml PO Q12H PRN PRN Reason: Constipation Menthol (Perform Pain Reliever) 0 ml TP QID [facility] Last Admin: 04/07/20 13:33 Dose: 89 ml Documented by: Metoprolol Tartrate (Lopressor) 50 mg PO BID [facility] Last Admin: 04/07/20 09:36 Dose: 50 mg Documented by: Morphine Sulfate (Morphine 10 Mg/0.5 Ml Oral Syringe) 5 mg SL Q2H PRN PRN Reason: SEVERE PAIN (7-10/10) Ondansetron HCl (Zofran) 4 mg IV Q4H PRN PRN Reason: Nausea/Vomiting Senna/Docusate Sodium (Senna Plus) 1 tab PO BID [facility] Last Admin: 04/07/20 09:36 Dose: 1 tab Documented by: Sodium Chloride (Saline Flush) 10 ml FLUSH ASDIRECTED PRN PRN Reason: Keep Vein Open Last Admin: 04/04/20 19:13 Dose: 10 ml Documented by: Discontinued Medications Acetaminophen (Tylenol) 1,000 mg PO QID [facility] Last Admin: 04/05/20 01:37 Dose: Not Given Documented by: Acetaminophen (Tylenol Extra Strength) 1,000 mg PO Q6H [facility] Last Admin: 04/05/20 09:22 Dose: 1,000 mg Documented by: Atorvastatin Calcium (Lipitor) 20 mg PO BEDTIME [facility] Last Admin: 04/05/20 20:23 Dose: 20 mg Documented by: Bisacodyl (Dulcolax) 10 mg RECTAL ONETIME ONE Stop: 04/05/20 09:46 Last Admin: 04/05/20 18:55 Dose: 10 mg Documented by: Cyclobenzaprine HCl (Flexeril) 5 mg PO TID [facility] Last Admin: 04/04/20 21:40 Dose: 5 mg Documented by: Hydromorphone HCl (Dilaudid) 0.5 mg IVPUSH ONETIME ONE Stop: 04/04/20 16:36 Last Admin: 04/04/20 16:47 Dose: 0.5 mg Documented by: Hydromorphone HCl (Dilaudid) 0.5 mg IVPUSH ONETIME ONE Stop: 04/04/20 19:04 Last Admin: 04/04/20 19:12 Dose: 0.5 mg Documented by: Hydromorphone HCl (Dilaudid) 0.5 mg IVPUSH ONETIME ONE Stop: 04/04/20 20:55 Last Admin: 04/04/20 21:14 Dose: 0.5 mg Documented by: Hydromorphone HCl (Dilaudid) 0.5 mg IVPUSH Q2H PRN PRN Reason: Pain (severe 7-10) Sodium Chloride (Normal Saline) 1,000 mls @ 999 mls/hr IV .BOLUS ONE Stop: 04/04/20 17:35 Last Admin: 04/04/20 16:48 Dose: 999 mls/hr Documented by: Ondansetron HCl (Zofran) 4 mg IVPUSH ONETIME ONE Stop: 04/04/20 16:36 Last Admin: 04/04/20 16:48 Dose: 4 mg Documented by: Oxycodone HCl (Oxycodone) 5 mg PO QID [facility] Last Admin: 04/05/20 01:36 Dose: Not Given Documented by: Oxycodone HCl (Oxycodone) 5 mg PO Q6H [facility] Last Admin: 04/05/20 03:17 Dose: 5 mg Documented by: Zolpidem Tartrate (Ambien) 5 mg PO BEDTIME PRN PRN Reason: Sleep - Exam General: Reports: Alert, Oriented (person, but not time, thought it was sunday.), Cooperative, No Acute Distress Lungs: Reports: Clear to Auscultation, Normal Respiratory Effort Cardiovascular: Reports: Regular Rate, Regular Rhythm GI/Abdominal Exam: Normal Bowel Sounds, Soft, Non-Tender, No Distention Extremities: No Pedal Edema
== END 2020-04-07 14:21 | disposition swing bed (61) | DRG 683 ==
LOC: FB.ED 15:30 → FB.MS 19:16
PROVIDERS: ADMIT Emergency Medicine; ATTEND Family Medicine
DX: N17.9 Acute kidney failure, unspecified (principal); C34.90 Malignant neoplasm of unspecified part of unspecified bronchus or lung; C79.51 Secondary malignant neoplasm of bone; I10 Essential (primary) hypertension; G89.3 Neoplasm related pain (acute) (chronic); G89.11 Acute pain due to trauma; M54.5 Low back pain; E88.09 Other disorders of plasma-protein metabolism, not elsewhere classified; Z66 Do not resuscitate; Z20.822 Contact with and (suspected) exposure to COVID-19; R79.82 Elevated C-reactive protein (CRP); C22.8 Malignant neoplasm of liver, primary, unspecified as to type; C61 Malignant neoplasm of prostate; Z79.899 Other long term (current) drug therapy; K59.01 Slow transit constipation; N18.30 Chronic kidney disease, stage 3 unspecified; Z51.5 Encounter for palliative care; E86.0 Dehydration; I12.9 Hypertensive chronic kidney disease with stage 1 through stage 4 chronic kidney disease, or unspecified chronic kidney disease; Z79.82 Long term (current) use of aspirin; Z87.891 Personal history of nicotine dependence; Z85.820 Personal history of malignant melanoma of skin
CPT/HCPCS: 36415; 72131; 80048; 80053; 81001; 85025; 86140; 93005; 96374; 96375; 97110-GP; 97116-GP; 97161-GP; 99284; 99285-25; A9270-GY; J1170; J1650; J2405; J7030; J7042; J8540; U0002

== ENCOUNTER 2020-04-07 14:22 | Inpatient (IN) | payer MEDICARE, BC ==
--- NOTE | 2020-04-07 15:12 | PCM.HP.2 ---
H&P History of Present Illness - General Date of Service: 04/07/20 Source of Information: Patient, EMS Notes Reviewed - History of Present Illness Initial Comments - Free Text/Narative: ACUTE HPI: Leonardo had fallen on Sunday, thought the bed was behind him and was not, came in by ambulance to ER because pain and could not walk. He has history of prostate cancer, had radiation. Was diagnosed with stage 4 Lung cancer Feb 2019, mets to the bone specifically L4 vertebrae was found about 2 months ago. He is getting Envase every 3 weeks per ER, Henry states its been a couple of months, and last 6-7 days. He does have some trouble with dates he said. He denies any headaches, nasal congestion, sore throat, cough, shortness of breath, chest pain. No nausea or vomiting. Has been constipated, last bowel movement was been about 5 days. Uses Lactulose sporadically, states he gets better results from enemas. Denies any rashes currently. No frequency, dysuria or hematuria. Some peripheral edema in his ankles which states is chronic. He lives at home alone, his children all have families of their own, so he is not sure if they can help him at home or not. ACUTE HOSPITAL COURSE: Admitted for intractable back pain secondary to fall and bone mets, dehydration & constipation. He had good bowel movement on 04/05 overnight, pain has been controlled with starting Fentanyl patch 12 mcg q72h, he has taken 1-2 Flexeril daily but has not taken Morphine. He has some pain with getting from supine to sitting then once he gets up he is better, PT/OT evaluated(see notes) and recommended swing bed for further strengthen. On admission he was on IVF, were discontinued the next morning, encouraged oral intake, creatinine improved to 1.9 which is his baseline per his chart. Family would like him to get stronger so he can come home with home health services possibly palliative care. Transfer to swing bed today. - Related Data Allergies/Adverse Reactions: Allergies Allergy/AdvReac Type Severity Reaction Status Date / Time No Known Allergies Allergy Verified 11/23/19 19:37 Home Medications: Home Meds Aspirin [Adult Low Dose Aspirin EC] 81 mg PO DAILY 04/05/20 [History] Metoprolol Tartrate 50 mg PO BID 04/05/20 [History] Acetaminophen [Tylenol] 650 mg PO Q6H tablet 04/07/20 [Rx] Cyclobenzaprine [Flexeril] 5 mg PO TID PRN tablet 04/07/20 [Rx] Docusate Sodium/Sennosides [Senna Plus] 1 tab PO BID tablet 04/07/20 [Rx] Magnesium Hydroxide [Milk of Magnesia] 30 ml PO Q12H PRN cup 04/07/20 [Rx] Menthol [Perform Pain Reliever] 0 ml TP QID tube 04/07/20 [Rx] Ondansetron [Zofran] 4 mg IV Q4H PRN vial 04/07/20 [Rx] dexAMETHasone [Dexamethasone] 4 mg PO DAILY tablet 04/07/20 [Rx] fentaNYL [Duragesic] 12 mcg TRDERM Q72H patch 04/07/20 [Rx] Past Medical History HEENT History: Reports: Cataract Other HEENT History: wears glasses Cardiovascular History: Reports: Hypertension Other Cardiovascular History: [place] involvinng left anterior descending coronary artery. Respiratory History: Reports: Other (See Below) Other Respiratory History: former smoker since he was 16 years old. Genitourinary History: Reports: Other (See Below) Other Genitourinary History: prostate cancer. Oncologic (Cancer) History: Reports: Liver, Lung, Prostate, Other (See Below) Other Oncologic History: melanoma Dermatologic History: Reports: Melanoma - Infectious Disease History Infectious Disease History: Reports: Chicken Pox Social & Family History - Family History Family Medical History: No Pertinent Family History - Caffeine Use Caffeine Use: Reports: Coffee, Soda H&P Review of Systems - Review of Systems: Review Of Systems: Comprehensive ROS is negative, except as noted in HPI. Exam - Exam Exam: See Below - Exam General: Alert, Oriented (person, not time), Cooperative Lungs: Clear to Auscultation, Normal Respiratory Effort Cardiovascular: Regular Rate, Regular Rhythm GI/Abdominal Exam: Normal Bowel Sounds, Soft, Non-Tender, No Distention Extremities: No Pedal Edema *Q Meaningful Use (ADM) - VTE *Q VTE Mechanical Contraindications *Q: At Risk for Falls - VTE Risk Assess *Q Each Risk Factor Represents 1 Point: None Total Score 1 Point Risk Factors: 0 Each Risk Factor Represents 2 Points: Malignancy (present or previous) Total Score 2 Point Risk Factors: 2 Each Risk Factor Represents 3 Points: Age 75 Years or Greater Total Score 3 Point Risk Factors: 3 Each Risk Factor Represents 5 Points: None Total Score 5 Point Risk Factors: 0 Venous Thromboembolism Risk Factor Score *Q: 5 - Problem List (1) Acute low back pain due to trauma SNOMED Code(s): 036026883 ICD Code: M54.5 - LOW BACK PAIN; G89.11 - ACUTE PAIN DUE TO TRAUMA Status: Acute Current Visit: No (2) Bone metastases Status: Chronic Current Visit: No Problem Details: From lung cancer. (3) Chronic renal insufficiency, stage III (moderate) SNOMED Code(s): 996977364 ICD Code: N18.30 - CHRONIC KIDNEY DISEASE, STAGE 3 UNSPECIFIED Status: Chronic Current Visit: No (4) Lung cancer SNOMED Code(s): 228456481 ICD Code: C34.90 - MALIGNANT NEOPLASM OF UNSP PART OF UNSP BRONCHUS OR LUNG Status: Chronic Current Visit: No (5) Prostate cancer SNOMED Code(s): 145436181 ICD Code: C61 - MALIGNANT NEOPLASM OF PROSTATE Status: Chronic Current Visit: No Problem List Initiated/Reviewed/Updated: Yes Assessment/Plan Comment:: 1. Admit to swing bed for rehab therapies. 2. PT/OT evaluate & treat. 3. Bone mets/Lung CA/Prostate CA: Fentanyl 12 mcg q72h, Flexeril tid as needed, Preform qid as needed, Tylenol 650 mg po q6h. 4. Constipation secondary to narcotics: Senna bid. 5. Regular diet. 6. DVT prophylaxis: TEDs BLE. 7. CODE STATUS: DNR/DNI. Anticipate discharge to home with Home health services/palliative care with family. - Mortality Measure Prognosis:: Poor
[2020-04-07] MEDS ORDERED: Magnesium Hydroxide 400 MG/5 ML Susp 30 ML Cup PO PRN (15:20)
[2020-04-07] MEDS: Acetaminophen 325 MG Tab PO SCH ×2 (16:26→21:15)
[2020-04-07] MEDS ORDERED: Ondansetron 4 MG Tab.DIS PO PRN (16:46)
[2020-04-07] MEDS: Perform Pain Reliever Gel 89 ML Tube TP SCH ×2 (17:54→21:16)
[2020-04-07] MEDS: Metoprolol Tartrate 50 MG Tab PO SCH (21:15)
[2020-04-07] MEDS: Cyclobenzaprine 10 MG Tab PO PRN (21:30)
[2020-04-08] MEDS: Acetaminophen 325 MG Tab PO SCH ×4 (02:40→21:14)
[2020-04-08] MEDS: Aspirin 81 MG Tab.EC PO SCH (08:47)
[2020-04-08] MEDS: Dexamethasone 4 MG Tab PO SCH (08:47)
[2020-04-08] MEDS: fentaNYL 12 MCG/HR Transdermal Patch TRDERM SCH (08:47)
[2020-04-08] MEDS: Metoprolol Tartrate 50 MG Tab PO SCH ×2 (08:48→21:15)
[2020-04-08] MEDS: Perform Pain Reliever Gel 89 ML Tube TP SCH ×4 (08:48→21:14)
[2020-04-09] MEDS: Acetaminophen 325 MG Tab PO SCH ×4 (03:23→21:15)
[2020-04-09] MEDS: Dexamethasone 4 MG Tab PO SCH (08:03)
[2020-04-09] MEDS: Aspirin 81 MG Tab.EC PO SCH (08:04)
[2020-04-09] MEDS: Metoprolol Tartrate 50 MG Tab PO SCH ×2 (08:04→21:16)
[2020-04-09] MEDS: Perform Pain Reliever Gel 89 ML Tube TP SCH ×4 (08:05→21:14)
[2020-04-10] MEDS: Acetaminophen 325 MG Tab PO SCH ×4 (03:14→21:12)
[2020-04-10] MEDS: Aspirin 81 MG Tab.EC PO SCH (08:56)
[2020-04-10] MEDS: Dexamethasone 4 MG Tab PO SCH (08:56)
[2020-04-10] MEDS: Perform Pain Reliever Gel 89 ML Tube TP SCH ×4 (08:57→21:11)
[2020-04-10] MEDS: Metoprolol Tartrate 50 MG Tab PO SCH ×2 (09:03→21:10)
[2020-04-10] MEDS: Cyclobenzaprine 10 MG Tab PO PRN ×2 (09:15→12:46)
[2020-04-11] MEDS: Cyclobenzaprine 10 MG Tab PO PRN (00:37)
[2020-04-11] MEDS: Acetaminophen 325 MG Tab PO SCH ×4 (02:39→21:16)
[2020-04-11] MEDS: Dexamethasone 4 MG Tab PO SCH (08:45)
[2020-04-11] MEDS: Metoprolol Tartrate 50 MG Tab PO SCH ×2 (08:45→21:23)
[2020-04-11] MEDS: fentaNYL 12 MCG/HR Transdermal Patch TRDERM SCH (08:47)
[2020-04-11] MEDS: Aspirin 81 MG Tab.EC PO SCH (08:47)
[2020-04-11] MEDS: Perform Pain Reliever Gel 89 ML Tube TP SCH ×4 (08:48→21:16)
[2020-04-12] MEDS: Acetaminophen 325 MG Tab PO SCH ×4 (04:02→20:49)
[2020-04-12] MEDS: Metoprolol Tartrate 50 MG Tab PO SCH ×2 (08:25→20:47)
[2020-04-12] MEDS: Dexamethasone 4 MG Tab PO SCH (08:25)
[2020-04-12] MEDS: Aspirin 81 MG Tab.EC PO SCH (08:26)
[2020-04-12] MEDS: Perform Pain Reliever Gel 89 ML Tube TP SCH ×4 (08:26→20:48)
[2020-04-12] MEDS: Cyclobenzaprine 10 MG Tab PO PRN (20:50)
[2020-04-13] MEDS: Acetaminophen 325 MG Tab PO SCH ×4 (02:59→20:48)
[2020-04-13] MEDS: Metoprolol Tartrate 50 MG Tab PO SCH ×2 (08:14→20:50)
[2020-04-13] MEDS: Aspirin 81 MG Tab.EC PO SCH (08:14)
[2020-04-13] MEDS: Perform Pain Reliever Gel 89 ML Tube TP SCH ×4 (08:15→20:49)
[2020-04-13] MEDS: Dexamethasone 4 MG Tab PO SCH (08:15)
[2020-04-14] MEDS: Acetaminophen 325 MG Tab PO SCH ×2 (03:20→09:04)
[2020-04-14] MEDS: Dexamethasone 4 MG Tab PO SCH (08:05)
[2020-04-14] MEDS: Metoprolol Tartrate 50 MG Tab PO SCH (08:05)
[2020-04-14] MEDS: fentaNYL 12 MCG/HR Transdermal Patch TRDERM SCH (08:05)
[2020-04-14] MEDS: Perform Pain Reliever Gel 89 ML Tube TP SCH (08:05)
[2020-04-14] MEDS: Aspirin 81 MG Tab.EC PO SCH (08:05)
--- NOTE | 2020-04-15 02:27 | DISCH ---
DISCHARGE DATE: 04/14/2020 REASON FOR ADMISSION: 1. Metastatic prostate cancer. 2. Bone pain. 3. Dehydration. 4. Generalized weakness. 5. History of lung cancer. 6. Ambulatory dysfunction. BRIEF HISTORY: This is an 84-year-old who was admitted because of difficulty ambulating, bone pain due to metastatic cancer. He was treated with fentanyl patch, physical therapy, and symptoms improved. He is ready to go home today with home health. DISCHARGE MEDICATIONS: 1. Fentanyl 12 mcg patches every 72 hours. 2. Cyclobenzaprine 5 mg b.i.d. p.r.n. 3. Aspirin 81 mg a day. 4. Metoprolol 50 mg b.i.d. 5. Magnesium hydroxide every 12 hours p.r.n. FOLLOWUP: He will follow up with PCP in 1 week and Physical Therapy will continue to see him through the home health agency. I spent more than 35 minutes in the discharge of the patient. /[id number] FRANCOIS/GAYATRI
[2020-04-15 09:11] LABS: % FREE PSA <10.0 % (.); PROSTATE SPECIFIC AG, SERUM 0.2 ng/mL (0.0-4.0); PSA, FREE <0.02 ng/mL
== END 2020-04-14 11:30 | disposition home or self-care (01) | DRG 948 ==
LOC: FB.MS 14:22
PROVIDERS: ADMIT Family Medicine; ATTEND Family Medicine
DX: R53.1 Weakness (principal); C79.51 Secondary malignant neoplasm of bone; C34.90 Malignant neoplasm of unspecified part of unspecified bronchus or lung; G89.3 Neoplasm related pain (acute) (chronic); M54.5 Low back pain; G89.11 Acute pain due to trauma; N18.30 Chronic kidney disease, stage 3 unspecified; C61 Malignant neoplasm of prostate; Z66 Do not resuscitate; K59.03 Drug induced constipation; T40.605A Adverse effect of unspecified narcotics, initial encounter; E86.0 Dehydration; I12.9 Hypertensive chronic kidney disease with stage 1 through stage 4 chronic kidney disease, or unspecified chronic kidney disease; E88.09 Other disorders of plasma-protein metabolism, not elsewhere classified; K59.01 Slow transit constipation; Z79.82 Long term (current) use of aspirin; Z79.899 Other long term (current) drug therapy; Z85.820 Personal history of malignant melanoma of skin
CPT/HCPCS: 36415; 80053; 81001; 84153; 84154; 84443; 85025; 97110-GP; 97116-GP; 97165-GO; 97530-GP; A9270-GY; J8540

== ENCOUNTER 2020-06-24 04:37 | Emergency (ER) | payer MEDICARE, BC ==
[2020-06-24] MEDS ORDERED: Acetaminophen 325 MG Tab PO ONE (05:30)
--- NOTE | 2020-06-24 06:15 | EDM.PDOC ---
ED HPI GENERAL MEDICAL PROBLEM - General Chief Complaint: Respiratory Problem Stated Complaint: SOB Time Seen by Provider: 06/24/20 06:12 Source of Information: Reports: Patient, Family History Limitations: Reports: No Limitations - History of Present Illness INITIAL COMMENTS - FREE TEXT/NARRATIVE: Nathan complains of SOB.Non specific chest pain. He is accompanied by his son. He isak has metastatic prostate cancer. No fever or cough. GENERAL Pain Score (Numeric/FACES): 5 - Related Data Allergies Allergy/AdvReac Type Severity Reaction Status Date / Time No Known Allergies Allergy Verified 06/24/20 06:24 Home Meds: Home Meds Aspirin [Adult Low Dose Aspirin EC] 81 mg PO DAILY 04/05/20 [History] Metoprolol Tartrate 50 mg PO BID 04/05/20 [History] Acetaminophen [Tylenol] 650 mg PO Q6H tablet 04/07/20 [Rx] Docusate Sodium/Sennosides [Senna Plus] 1 tab PO BID tablet 04/07/20 [Rx] Magnesium Hydroxide [Milk of Magnesia] 30 ml PO Q12H PRN cup 04/07/20 [Rx] Menthol [Perform Pain Reliever] 0 ml TP QID tube 04/07/20 [Rx] Cyclobenzaprine [Flexeril] 5 mg PO BID PRN #30 tablet 04/14/20 [Rx] dexAMETHasone [Dexamethasone] 4 mg PO DAILY #15 tablet 04/14/20 [Rx] fentaNYL [Duragesic] 12 mcg TRDERM Q72H #10 patch 04/14/20 [Rx] Past Medical History HEENT History: Reports: Cataract Other HEENT History: wears glasses Cardiovascular History: Reports: Hypertension Other Cardiovascular History: [place] involvinng left anterior descending coronary artery. Respiratory History: Reports: Other (See Below) Other Respiratory History: former smoker since he was 16 years old. Genitourinary History: Reports: Other (See Below) Other Genitourinary History: prostate cancer. Oncologic (Cancer) History: Reports: Liver, Lung, Prostate, Other (See Below) Other Oncologic History: melanoma Dermatologic History: Reports: Melanoma - Infectious Disease History Infectious Disease History: Reports: Chicken Pox - Past Surgical History Male Surgical History: Reports: None Social & Family History - Family History Family Medical History: No Pertinent Family History - Caffeine Use Caffeine Use: Reports: Coffee ED ROS GENERAL - Review of Systems Review Of Systems: Comprehensive ROS is negative, except as noted in HPI. ED EXAM, GENERAL - Physical Exam Exam: See Below Exam Limited By: No Limitations General Appearance: Alert, WD/WN, No Apparent Distress, Anxious Ears: Normal External Exam Ear Exam: Bilateral Ear: Auricle Normal, Canal Normal, TM normal Nose: Normal Inspection Throat/Mouth: Normal Inspection Head: Atraumatic Neck: Normal Inspection Respiratory/Chest: No Respiratory Distress Cardiovascular: Normal Peripheral Pulses #1 Interpretation EKG Date: 06/24/20 Rhythm: NSR QRS: Normal Course - Vital Signs Last Recorded V/S: Last Vital Signs Temp 97.1 F 06/24/20 04:40 Pulse 61 06/24/20 06:00 Resp 18 06/24/20 06:00 BP 137/64 06/24/20 06:00 Pulse Ox 99 06/24/20 06:00 - Orders/Labs/Meds Labs: Laboratory Tests 06/24/20 06/24/20 06/24/20 Range/Units 04:50 04:50 04:50 WBC 12.5 H (3.2-10.1) x10-3/uL RBC 3.72 L (3.90-5.90) x10(6)uL Hgb 11.0 L (12.9-17.7) g/dL Hct 35.4 L (38.3-50.1) % MCV 95.2 (80.8-98.7) fL MCH 29.6 (27.0-33.3) pg MCHC 31.0 (28.7-35.3) g/dL RDW 18.6 H (12.4-15.0) % Plt Count 271 (117-477) x10(3)uL MPV 8.0 (6.7-11.0) fL Neutrophils % (Manual) 88 H (46-82) % Lymphocytes % (Manual) 3 L (13-37) % Monocytes % (Manual) 9 (4-12) % Sodium 145 (135-145) mmol/L Potassium 5.1 (3.5-5.3) mmol/L Chloride 105 (100-110) mmol/L Carbon Dioxide 25 (21-32) mmol/L BUN 30 H (7-18) mg/dL Creatinine 2.1 H* (0.70-1.30) mg/dL Est Cr Clr Drug Dosing TNP Estimated GFR (MDRD) 30 L (>60) BUN/Creatinine Ratio 14.3 (9-20) Glucose 91 (80-116) mg/dL Calcium 8.9 (8.6-10.2) mg/dL Total Bilirubin 0.4 (0.1-1.3) mg/dL AST 15 D (5-25) IU/L ALT 18 D (12-36) U/L Alkaline Phosphatase 76 (56-112) IU/L Troponin I 17.4 (4.0-60.3) pg/mL NT-Pro-B Natriuret Pep 2087 H* (<=450) pg/mL Total Protein 7.0 (6.0-8.0) g/dL Albumin 3.0 L (3.2-4.6) g/dL Globulin 4.0 g/dL Albumin/Globulin Ratio 0.8 SARS-CoV-2 RNA (ERIK) (NEGATIVE) 06/24/20 Range/Units 05:10 WBC (3.2-10.1) x10-3/uL RBC (3.90-5.90) x10(6)uL Hgb (12.9-17.7) g/dL Hct (38.3-50.1) % MCV (80.8-98.7) fL MCH (27.0-33.3) pg MCHC (28.7-35.3) g/dL RDW (12.4-15.0) % Plt Count (117-477) x10(3)uL MPV (6.7-11.0) fL Neutrophils % (Manual) (46-82) % Lymphocytes % (Manual) (13-37) % Monocytes % (Manual) (4-12) % Sodium (135-145) mmol/L Potassium (3.5-5.3) mmol/L Chloride (100-110) mmol/L Carbon Dioxide (21-32) mmol/L BUN (7-18) mg/dL Creatinine (0.70-1.30) mg/dL Est Cr Clr Drug Dosing Estimated GFR (MDRD) (>60) BUN/Creatinine Ratio (9-20) Glucose (80-116) mg/dL Calcium (8.6-10.2) mg/dL Total Bilirubin (0.1-1.3) mg/dL AST (5-25) IU/L ALT (12-36) U/L Alkaline Phosphatase (56-112) IU/L Troponin I (4.0-60.3) pg/mL NT-Pro-B Natriuret Pep (<=450) pg/mL Total Protein (6.0-8.0) g/dL Albumin (3.2-4.6) g/dL Globulin g/dL Albumin/Globulin Ratio SARS-CoV-2 RNA (ERIK) Negative (NEGATIVE) Meds: Medications Discontinued Medications Generic Name Dose Route Start Last Admin Trade Name Freq PRN Reason Stop Dose Admin Acetaminophen 650 mg 06/24/20 05:30 06/24/20 05:30 Acetaminophen 325 Mg Tab PO 06/24/20 05:31 650 mg NOW ONE Administration Departure - Departure Time of Disposition: 06:14 Disposition: Home, Self-Care 01 Condition: Good Clinical Impression: Prostate cancer, Chronic renal insufficiency, stage III (moderate) - Discharge Information Referrals: PCP,None [Primary Care Provider] - Forms: ED Department Discharge Sepsis Event Note (ED) - Evaluation Sepsis Screening Result: No Definite Risk - Problem List & Annotations (1) Acute anxiety SNOMED Code(s): 23024505, 85221521 Code(s): F41.9 - ANXIETY DISORDER, UNSPECIFIED Status: Acute (2) CKD (chronic kidney disease) SNOMED Code(s): 720247302 Code(s): N18.9 - CHRONIC KIDNEY DISEASE, UNSPECIFIED Status: Acute Qualifiers: Chronic kidney disease stage: stage 3 (moderate) (3) Prostate cancer SNOMED Code(s): 892462344 Code(s): C61 - MALIGNANT NEOPLASM OF PROSTATE Status: Chronic (4) Bone metastases Status: Chronic Annotation/Comment:: From lung cancer. - Problem List Review Problem List Initiated/Reviewed/Updated: Yes - Assessment/Plan Plan: Reassurance. [facility]
== END 2020-06-24 06:15 | disposition home or self-care (01) ==
LOC: FB.ED 04:37
DX: I12.9 Hypertensive chronic kidney disease with stage 1 through stage 4 chronic kidney disease, or unspecified chronic kidney disease (principal); N18.30 Chronic kidney disease, stage 3 unspecified; C61 Malignant neoplasm of prostate; Z79.82 Long term (current) use of aspirin; Z79.899 Other long term (current) drug therapy; Z20.822 Contact with and (suspected) exposure to COVID-19; Z87.891 Personal history of nicotine dependence
CPT/HCPCS: 36415; 80053; 83880; 84484; 85025; 93005; 99285-25; A9270-GY; U0002

== ENCOUNTER 2020-07-27 10:38 | Inpatient (IN) | payer MEDICARE, BC ==
[2020-07-27] MEDS ORDERED: Nitroglycerin 0.4 MG Tab.SL SL PRN (16:19)
[2020-07-27] MEDS: Nystatin Susp 100,000 Unit/ML 5 ML UD Cup PO SCH ×2 (17:29→21:40)
[2020-07-27] MEDS: Ipratropium 0.02% 0.5 MG/2.5 ML Neb Soln INH SCH ×2 (17:29→21:37)
--- NOTE | 2020-07-27 18:48 | PCM.HP.2 ---
H&P History of Present Illness - General Date of Service: 07/27/20 Admit Problem/Dx: Admission Diagnosis/Problem Admission Diagnosis/Problem Weakness Source of Information: Patient, Old Records History Limitations: Reports: No Limitations - History of Present Illness Initial Comments - Free Text/Narative: 84-year-old gentleman admitted to alf/swing bed for occupational physical therapy secondary to treatment for acute encephalopathy secondary to fungal infection that caused him to have significantly reduced oral intake. He has a history of metastatic lung cancer. After his treatment inpatient he feels he is too weak to go home and will need some occupational physical therapy to regain his strength to see if he can go back home. He lives alone, he was w idowed approximately 2 years ago. Onset of Symptoms: Reports: Gradual - Related Data Allergies/Adverse Reactions: Allergies Allergy/AdvReac Type Severity Reaction Status Date / Time No Known Allergies Allergy Verified 07/27/20 16:00 Home Medications: Home Meds Metoprolol Tartrate 50 mg PO BID 04/05/20 [History] Acetaminophen [Tylenol] 650 mg PO BID 07/27/20 [History] Acetaminophen/Diphenhydramine [Acetaminophen Pm Caplet] 1 each PO BEDTIME PRN 07/27/20 [History] Apixaban [Eliquis] 2.5 mg PO BID 07/27/20 [History] Atovaquone 750 mg PO BIDMEALS 07/27/20 [History] Diltiazem HCl [Diltiazem 24Hr ER] 120 mg PO DAILY 07/27/20 [History] Docusate Sodium/Sennosides [Senokot-S] 1 each PO BID 07/27/20 [History] Formoterol [Perforomist] 20 mcg INH BID 07/27/20 [History] Ipratropium [Atrovent] 0.5 mg INH QID 07/27/20 [History] Lactobacillus Acidophilus [Probiotic] 1 each PO DAILY 07/27/20 [History] Lactulose [Cephulac] 30 ml PO BID 07/27/20 [History] Melatonin 6 mg PO BEDTIME 07/27/20 [History] Nitroglycerin [Nitrostat] 0.4 mg SL ASDIRECTED PRN 07/27/20 [History] Nystatin [Mycostatin] 500,000 unit PO QID 07/27/20 [History] Omeprazole 20 mg PO 0600 07/27/20 [History] Tamsulosin [Tamsulosin 24 Hr] 0.4 mg PO DAILY 07/27/20 [History] atorvaSTATin [Lipitor] 20 mg PO BEDTIME 07/27/20 [History] fentaNYL [Fentanyl] 25 mcg TD Q72H 07/27/20 [History] polyethylene glycoL 3350 [MiraLAX] 17 gm PO DAILY 07/27/20 [History] predniSONE [Prednisone] 20 mg PO ASDIRECTED 07/27/20 [History] Past Medical History HEENT History: Reports: Cataract Other HEENT History: wears glasses Cardiovascular History: Reports: CAD, Hypertension, Other (See Below) Other Cardiovascular History: [place] involvinng left anterior descending coronary artery. Respiratory History: Reports: Other (See Below) Other Respiratory History: former smoker since he was 16 years old. Gastrointestinal History: Reports: Other (See Below) Other Gastrointestinal History: Hyperlipidemia Genitourinary History: Reports: Prostate Disorder, Renal Calculus, Other (See Below) Other Genitourinary History: prostate cancer. Oncologic (Cancer) History: Reports: Liver, Lung, Prostate, Squamous Cell Carcinoma, Other (See Below) Other Oncologic History: melanoma Dermatologic History: Reports: Melanoma - Infectious Disease History Infectious Disease History: Reports: Chicken Pox - Past Surgical History Male Surgical History: Reports: None Social & Family History - Family History Family Medical History: No Pertinent Family History - Tobacco Use Tobacco Use Status *Q: Former Tobacco User Used Tobacco, but Quit: Yes Month/Year Tobacco Last Used: 2011 - Caffeine Use Caffeine Use: Reports: Coffee - Recreational Drug Use Recreational Drug Use: No H&P Review of Systems - Review of Systems: Review Of Systems: See Below General: Reports: Weakness, Fatigue HEENT: Reports: No Symptoms Pulmonary: Reports: No Symptoms Cardiovascular: Reports: No Symptoms Gastrointestinal: Reports: No Symptoms Genitourinary: Reports: No Symptoms Musculoskeletal: Reports: No Symptoms Skin: Reports: No Symptoms Psychiatric: Reports: No Symptoms Neurological: Reports: No Symptoms Hematologic/Lymphatic: Reports: No Symptoms Immunologic: Reports: No Symptoms Exam - Exam Exam: See Below - Vital Signs Vital Signs: Last Vital Signs Temp 36.4 C 07/27/20 15:32 Pulse 108 H 07/27/20 15:32 Resp 20 07/27/20 15:32 BP 124/78 07/27/20 15:32 Pulse Ox 93 L 07/27/20 15:32 Weight: 79.605 kg - Exam Quality Assessment: Supplemental Oxygen, Central Line/PICC, DVT Prophylaxis General: Alert, Oriented, Cooperative HEENT: EOMI Lungs: Clear to Auscultation Cardiovascular: Regular Rate, Regular Rhythm GI/Abdominal Exam: Normal Bowel Sounds Back Exam: Normal Inspection Extremities: Pedal Edema Peripheral Pulses: 2+: Radial (L), Radial (R) Skin: Warm, Dry, Intact, Other (Senile purpura) Neurological: Cranial Nerves Intact Neuro Extensive - Mental Status: Alert, Oriented x3, Normal Mood/Affect Psychiatric: Alert, Normal Affect, Normal Mood Sepsis Event Note - Evaluation Sepsis Screening Result: No Definite Risk - Focused Exam Vital Signs: Vital Signs Temp Pulse Resp BP Pulse Ox Pulse Ox 07/27/20 15:32 36.4 C 108 H 20 124/78 93 L 07/27/20 15:20 93 L 07/27/20 15:10 93 L - Problem List (1) Weakness SNOMED Code(s): 97268144 ICD Code: R53.1 - WEAKNESS Status: Acute Current Visit: Yes (2) Hyperlipidemia SNOMED Code(s): 67258775 ICD Code: E78.5 - HYPERLIPIDEMIA, UNSPECIFIED Status: Acute Current Visit: Yes (3) Obesity SNOMED Code(s): 158160225, 734350053 ICD Code: E66.9 - OBESITY, UNSPECIFIED Status: Acute Current Visit: Yes (4) Palliative care encounter SNOMED Code(s): 721163724, 107893632 ICD Code: Z51.5 - ENCOUNTER FOR PALLIATIVE CARE Status: Acute Current Visit: Yes (5) Bone metastases Status: Chronic Current Visit: No Problem Details: From lung cancer. (6) Chronic renal insufficiency, stage III (moderate) SNOMED Code(s): 011530885 ICD Code: N18.30 - CHRONIC KIDNEY DISEASE, STAGE 3 UNSPECIFIED Status: Chronic Current Visit: No (7) Lung cancer SNOMED Code(s): 739456373 ICD Code: C34.90 - MALIGNANT NEOPLASM OF UNSP PART OF UNSP BRONCHUS OR LUNG Status: Chronic Current Visit: No (8) Prostate cancer SNOMED Code(s): 786972188 ICD Code: C61 - MALIGNANT NEOPLASM OF PROSTATE Status: Chronic Current Visit: No (9) CAD (coronary artery disease) SNOMED Code(s): 42174475 ICD Code: I25.10 - ATHSCL HEART DISEASE OF [place] CORONARY ARTERY W/O ANG P SOIL ENGINEER Status: Acute Current Visit: Yes (10) Dysphagia SNOMED Code(s): 91514764, 668985610 ICD Code: R13.10 - DYSPHAGIA, UNSPECIFIED Status: Acute Current Visit: Yes Problem List Initiated/Reviewed/Updated: Yes Orders Last 24hrs: Active Orders 24 hr Category Date Time Status Patient Status [ADT] Routine ADT 07/27/20 16:28 Active Oxygen Therapy [RC] ASDIRECTED Care 07/27/20 17:46 Active Pulse Oximetry [RC] PRN Care 07/27/20 16:28 Active RT Post Treatment Assessment [RC] Click to Edit Care 07/27/20 16:25 Active Urinary Catheter Assessment [RC] QSHIFT Care 07/27/20 17:47 Active Urinary Catheter Removal [RC] PER UNIT ROUTINE Care 08/06/20 12:00 Active Vital Signs [RC] DAILY Care 07/27/20 16:28 Active OT Evaluation and Treatment [CONS] Routine Cons 07/27/20 17:45 Active PT Evaluation and Treatment [CONS] Routine Cons 07/27/20 17:45 Active Mechanical Soft Diet [DIET] Diet 07/27/20 Dinner Active BASIC METABOLIC PANEL,BMP [CHEM] Routine Lab 07/29/20 05:11 Ordered Acetaminophen [TylenoL] Med 07/27/20 21:00 Active 650 mg PO BID Apixaban [Eliquis] Med 07/27/20 21:00 Active 2.5 mg PO BID Arformoterol [Brovana] Med 07/27/20 21:00 Active 15 mcg INH Q12H Atovaquone [Mepron 750 MG/5 ML Susp] Med 07/28/20 09:00 Active 750 mg PO BIDMEALS Diltiazem [Cardizem CD] Med 07/28/20 09:00 Active 120 mg PO DAILY Docusate Sodium/Sennosides [Senna Plus] Med 07/27/20 21:00 Active 1 tab PO BID Ipratropium [Atrovent] Med 07/27/20 17:00 Active 0.5 mg INH QID Lactulose [Cephulac] Med 07/27/20 21:00 Active 20 gm PO BID Melatonin Med 07/27/20 21:00 Active 6 mg PO BEDTIME Metoprolol Tartrate [Lopressor] Med 07/27/20 21:00 Active 50 mg PO BID Nitroglycerin [Nitrostat] Med 07/27/20 16:19 Active 0.4 mg SL ASDIRECTED PRN Nystatin [Mycostatin] Med 07/27/20 17:00 Active 5 ml PO QID Pantoprazole [ProTONIX] Med 07/28/20 06:00 Active 40 mg PO 0600 Tamsulosin [Flomax] Med 07/28/20 09:00 Active 0.4 mg PO DAILY atorvaSTATin [Lipitor] Med 07/27/20 21:00 Active 20 mg PO BEDTIME polyethylene glycoL 3350 [MiraLAX] Med 07/28/20 09:00 Active 17 gm PO DAILY DVT/VTE Prophylaxis Reflex [OM.PC] Per Unit Routine Oth 07/27/20 16:28 Ordered Resuscitation Status Routine Resus Stat 07/27/20 17:42 Ordered Medication Orders Acetaminophen (Acetaminophen 325 Mg Tab) 650 mg PO BID [facility]EL[facility] Apixaban (Apixaban 5 Mg Tab) 2.5 mg PO BID [facility] Arformoterol Tartrate (Arformoterol 15 Mcg/2 Ml Neb Soln) 15 mcg INH Q12H [facility] Atorvastatin Calcium (Atorvastatin 20 Mg Tab) 20 mg PO BEDTIME [facility] Atovaquone (Atovaquone 750 Mg/5 Ml Susp 5 Ml Packet) 750 mg PO BIDMEALS [facility] Diltiazem HCl (Diltiazem 120 Mg Cap.Cd) 120 mg PO DAILY [facility] Ipratropium [place] (Ipratropium 0.02% 0.5 Mg/2.5 Ml Neb Soln) 0.5 mg INH QID [facility] Last Admin: 07/27/20 17:29 Dose: 0.5 mg Documented by: [id number] Lactulose (Lactulose Soln 10 Gm/15 Ml 30 Ml Ud Cup) 20 gm PO BID MELANIE Melatonin (Melatonin 3 Mg Tab) 6 mg PO BEDTIME [facility]EL[facility] Metoprolol Tartrate (Metoprolol Tartrate 50 Mg Tab) 50 mg PO BID [facility] Nitroglycerin (Nitroglycerin 0.4 Mg Tab.Sl) 0.4 mg SL ASDIRECTED PRN PRN Reason: Chest Pain Nystatin (Nystatin Susp 100,000 Unit/Ml 5 Ml Ud Cup) 5 ml PO QID REPLACED BY [facility] Last Admin: 07/27/20 17:29 Dose: 5 ml Documented by: [id number] Pantoprazole Sodium (Pantoprazole 40 Mg Tab.Cr) 40 mg PO 0600 REPLACED BY [facility] Polyethylene Glycol (Polyethylene Glycol 3350 Powder 17 Gm Packet) 17 gm PO DAILY REPLACED BY [facility] Senna/Docusate Sodium (Docusate Sodium/Sennosides 50-8.6 Mg Tab) 1 tab PO BID REPLACED BY [facility] Tamsulosin HCl (Tamsulosin 0.4 Mg Cap.Er) 0.4 mg PO DAILY REPLACED BY [facility] Assessment/Plan Comment:: Patient admitted to swing bed for physical and Occupational Therapy. Patient likely has reduced function secondary to hospital stay with long period of of activity. Continue treatment for chronic conditions as above Patient requested mechanical soft diet secondary to dysphagia and difficulty with constipation likely secondary to pain management Patient had an acute kidney injury while inpatient, monitor BMP, patient has urinary catheter for the next 10 days, routine catheter care Continue Eliquis/DVT prophylaxis
[2020-07-27] MEDS ORDERED: Budesonide 0.5 MG/2 ML Neb Susp INH SCH (21:00)
[2020-07-27] MEDS: Arformoterol 15 MCG/2 ML Neb Soln INH SCH (21:37)
[2020-07-27] MEDS: Apixaban 5 MG Tab PO SCH (21:38)
[2020-07-27] MEDS: Lactulose Soln 10 GM/15 ML 30 ML UD Cup PO SCH (21:38)
[2020-07-27] MEDS: Melatonin 3 MG Tab PO SCH (21:39)
[2020-07-27] MEDS: atorvaSTATin 20 MG Tab PO SCH (21:39)
[2020-07-27] MEDS: Acetaminophen 325 MG Tab PO SCH (21:40)
[2020-07-27] MEDS: Metoprolol Tartrate 50 MG Tab PO SCH (21:45)
[2020-07-28] MEDS: Pantoprazole 40 MG Tab.CR PO SCH (06:33)
[2020-07-28] MEDS ORDERED: Bisacodyl 10 MG Supp RECTAL ONE (06:59)
[2020-07-28] MEDS: Acetaminophen 325 MG Tab PO SCH ×2 (09:08→20:56)
[2020-07-28] MEDS: Nystatin Susp 100,000 Unit/ML 5 ML UD Cup PO SCH ×4 (09:08→20:55)
[2020-07-28] MEDS: Arformoterol 15 MCG/2 ML Neb Soln INH SCH ×2 (09:08→20:50)
[2020-07-28] MEDS: Ipratropium 0.02% 0.5 MG/2.5 ML Neb Soln INH SCH ×4 (09:08→21:00)
[2020-07-28] MEDS: Apixaban 5 MG Tab PO SCH ×2 (09:09→20:54)
[2020-07-28] MEDS: Diltiazem 120 MG Cap.CD PO SCH (09:10)
[2020-07-28] MEDS: Lactulose Soln 10 GM/15 ML 30 ML UD Cup PO SCH ×2 (09:10→20:54)
[2020-07-28] MEDS: Metoprolol Tartrate 50 MG Tab PO SCH ×2 (09:10→20:55)
[2020-07-28] MEDS: Tamsulosin 0.4 MG Cap.ER PO SCH (09:10)
[2020-07-28] MEDS: Polyethylene Glycol 3350 Powder 17 GM Packet PO SCH (09:11)
[2020-07-28] MEDS: Atovaquone 750 MG/5 ML Susp 5 ML Packet PO SCH ×2 (09:27→17:44)
[2020-07-28] MEDS: predniSONE 20 MG Tab PO SCH (11:05)
[2020-07-28] MEDS ORDERED: Sodium Phosphate,Monobasic/Sodium Phosphate,Dibasic Enema 133 ML Bottle RECTAL ONE ×2 (13:32→17:33)
[2020-07-28] MEDS: atorvaSTATin 20 MG Tab PO SCH (20:54)
[2020-07-28] MEDS: Melatonin 3 MG Tab PO SCH (20:55)
[2020-07-28] MEDS: fentaNYL 25 MCG/HR Transdermal Patch TRDERM SCH (21:28)
[2020-07-29] MEDS: Pantoprazole 40 MG Tab.CR PO SCH (06:01)
[2020-07-29] MEDS: Nystatin Susp 100,000 Unit/ML 5 ML UD Cup PO SCH ×4 (08:57→20:26)
[2020-07-29] MEDS: Atovaquone 750 MG/5 ML Susp 5 ML Packet PO SCH ×2 (08:57→17:49)
[2020-07-29] MEDS: predniSONE 20 MG Tab PO SCH (08:57)
[2020-07-29] MEDS: Arformoterol 15 MCG/2 ML Neb Soln INH SCH ×2 (08:57→20:22)
[2020-07-29] MEDS: Apixaban 5 MG Tab PO SCH ×2 (08:57→20:25)
[2020-07-29] MEDS: Ipratropium 0.02% 0.5 MG/2.5 ML Neb Soln INH SCH ×4 (08:57→20:22)
[2020-07-29] MEDS: Polyethylene Glycol 3350 Powder 17 GM Packet PO SCH (08:57)
[2020-07-29] MEDS: Lactulose Soln 10 GM/15 ML 30 ML UD Cup PO SCH ×2 (08:57→20:24)
[2020-07-29] MEDS: Acetaminophen 325 MG Tab PO SCH ×2 (08:58→20:26)
[2020-07-29] MEDS: Tamsulosin 0.4 MG Cap.ER PO SCH (08:58)
[2020-07-29] MEDS: Diltiazem 120 MG Cap.CD PO SCH (09:11)
[2020-07-29] MEDS: Metoprolol Tartrate 50 MG Tab PO SCH ×2 (09:11→20:27)
[2020-07-29] MEDS: atorvaSTATin 20 MG Tab PO SCH (20:25)
[2020-07-29] MEDS: Melatonin 3 MG Tab PO SCH (20:25)
[2020-07-30] MEDS: Pantoprazole 40 MG Tab.CR PO SCH (06:28)
[2020-07-30] MEDS ORDERED: Ondansetron 4 MG Tab.DIS PO PRN (08:06)
[2020-07-30] MEDS: Arformoterol 15 MCG/2 ML Neb Soln INH SCH ×2 (09:06→20:31)
[2020-07-30] MEDS: Ipratropium 0.02% 0.5 MG/2.5 ML Neb Soln INH SCH ×4 (09:06→20:31)
[2020-07-30] MEDS: Atovaquone 750 MG/5 ML Susp 5 ML Packet PO SCH ×2 (10:16→18:21)
[2020-07-30] MEDS: predniSONE 20 MG Tab PO SCH (10:20)
[2020-07-30] MEDS: Apixaban 5 MG Tab PO SCH ×2 (10:20→20:35)
[2020-07-30] MEDS: Metoprolol Tartrate 50 MG Tab PO SCH ×2 (10:21→20:37)
[2020-07-30] MEDS: Diltiazem 120 MG Cap.CD PO SCH (10:21)
[2020-07-30] MEDS: Acetaminophen 325 MG Tab PO SCH ×2 (10:21→20:39)
[2020-07-30] MEDS: Nystatin Susp 100,000 Unit/ML 5 ML UD Cup PO SCH ×4 (10:21→20:38)
[2020-07-30] MEDS: Polyethylene Glycol 3350 Powder 17 GM Packet PO SCH (10:22)
[2020-07-30] MEDS: Lactulose Soln 10 GM/15 ML 30 ML UD Cup PO SCH ×2 (10:22→20:35)
--- NOTE | 2020-07-30 10:27 | PCM.PN ---
- General Info Date of Service: 07/30/20 Admission Dx/Problem (Free Text): Patient states he is doing well. He denies shortness of breath, cough. He states that he gets dizziness when he stands up. Nurses report port that he gets short of breath when he is up and anxious. He denies being anxious. No fevers or chills. - Patient Data Vitals - Most Recent: Last Vital Signs Temp 97.8 F 07/30/20 07:50 Pulse 88 07/30/20 10:21 Resp 18 07/30/20 07:50 BP 120/76 07/30/20 10:21 Pulse Ox 92 L 07/30/20 07:50 Orthostatic Blood Pressure [ 81/56 Standing] Orthostatic Blood Pressure [ 106/65 Sitting] Orthostatic Blood Pressure [ 127/74 Supine] Weight - Most Recent: 175 lb 8 oz I&O - Last 24 Hours: Intake & Output 07/29/20 07/30/20 07/30/20 22:59 06:59 14:59 Output Total 15 30 Balance -14* -29* @ Med Orders - Current: Current Medications Acetaminophen (Acetaminophen 325 Mg Tab) 650 mg PO BID [facility] Last Admin: 07/30/20 10:21 Dose: 650 mg Documented by: Apixaban (Apixaban 5 Mg Tab) 2.5 mg PO BID [facility] Last Admin: 07/30/20 10:20 Dose: 2.5 mg Documented by: Arformoterol Tartrate (Arformoterol 15 Mcg/2 Ml Neb Soln) 15 mcg INH Q12H [facility] Last Admin: 07/30/20 09:06 Dose: 15 mcg Documented by: Atorvastatin Calcium (Atorvastatin 20 Mg Tab) 20 mg PO BEDTIME [facility] Last Admin: 07/29/20 20:25 Dose: 20 mg Documented by: Atovaquone (Atovaquone 750 Mg/5 Ml Susp 5 Ml Packet) 750 mg PO BIDMEALS [facility] Last Admin: 07/30/20 10:16 Dose: 750 mg Documented by: Diltiazem HCl (Diltiazem 120 Mg Cap.Cd) 120 mg PO DAILY [facility] Last Admin: 07/30/20 10:21 Dose: 120 mg Documented by: Fentanyl (Fentanyl 25 Mcg/Hr Transdermal Patch) 25 mcg TRDERM Q72H [facility] Last Admin: 07/28/20 21:28 Dose: 25 mcg Documented by: Ipratropium [place] (Ipratropium 0.02% 0.5 Mg/2.5 Ml Neb Soln) 0.5 mg INH QID [facility] Last Admin: 07/30/20 09:06 Dose: 0.5 mg Documented by: Lactulose (Lactulose Soln 10 Gm/15 Ml 30 Ml Ud Cup) 20 gm PO BID [facility] Last Admin: 07/30/20 10:22 Dose: 20 gm Documented by: Melatonin (Melatonin 3 Mg Tab) 6 mg PO BEDTIME [facility] Last Admin: 07/29/20 20:25 Dose: 6 mg Documented by: Metoprolol Tartrate (Metoprolol Tartrate 50 Mg Tab) 50 mg PO BID [facility] Last Admin: 07/30/20 10:21 Dose: 50 mg Documented by: Nitroglycerin (Nitroglycerin 0.4 Mg Tab.Sl) 0.4 mg SL ASDIRECTED PRN PRN Reason: Chest Pain Nystatin (Nystatin Susp 100,000 Unit/Ml 5 Ml Ud Cup) 5 ml PO QID [facility] Last Admin: 07/30/20 10:21 Dose: 5 ml Documented by: Ondansetron HCl (Ondansetron 4 Mg Tab.Dis) 4 mg PO Q6H PRN PRN Reason: Nausea/Vomiting Last Admin: 07/30/20 08:23 Dose: 4 mg Documented by: Pantoprazole Sodium (Pantoprazole 40 Mg Tab.Cr) 40 mg PO 0600 [facility] Last Admin: 07/30/20 06:28 Dose: 40 mg Documented by: Polyethylene Glycol (Polyethylene Glycol 3350 Powder 17 Gm Packet) 17 gm PO DAILY [facility] Last Admin: 07/30/20 10:22 Dose: 17 gm Documented by: Prednisone (Prednisone 20 Mg Tab) 40 mg PO DAILY [facility] Stop: 08/01/20 09:01 Last Admin: 07/30/20 10:20 Dose: 40 mg Documented by: Prednisone (Prednisone 10 Mg Tab) 30 mg PO DAILY [facility] Stop: 08/06/20 09:01 Prednisone (Prednisone 20 Mg Tab) 20 mg PO DAILY [facility] Stop: 08/11/20 09:01 Prednisone (Prednisone 10 Mg Tab) 10 mg PO DAILY [facility] Stop: 08/16/20 09:01 Senna/Docusate Sodium (Docusate Sodium/Sennosides 50-8.6 Mg Tab) 1 tab PO BID [facility] Last Admin: 07/30/20 10:21 Dose: 1 tab Documented by: Discontinued Medications Bisacodyl (Bisacodyl 10 Mg Supp) 10 mg RECTAL ONETIME ONE Stop: 07/28/20 07:00 Last Admin: 07/28/20 09:24 Dose: 10 mg Documented by: Sodium Biphosphate/Sodium Phosphate (Sodium Phosphate,Monobasic/Sodium Phosphate,Dibasic Enema 133 Ml Bottle) 133 ml RECTAL ONETIME ONE Stop: 07/28/20 13:33 Last Admin: 07/28/20 14:03 Dose: 133 units Documented by: Sodium Biphosphate/Sodium Phosphate (Sodium Phosphate,Monobasic/Sodium Phosphate,Dibasic Enema 133 Ml Bottle) 133 ml RECTAL ONETIME ONE Stop: 07/28/20 17:34 Last Admin: 07/28/20 18:23 Dose: 133 ml Documented by: Tamsulosin HCl (Tamsulosin 0.4 Mg Cap.Er) 0.4 mg PO DAILY [facility] Last Admin: 07/29/20 08:58 Dose: 0.4 mg Documented by: - Exam General: Alert, Oriented Neck: Supple Lungs: Normal Respiratory Effort, Wheezing Cardiovascular: Regular Rate, Regular Rhythm - Patient Data Result Diagrams: 07/29/20 06:30 Sepsis Event Note - Evaluation Sepsis Screening Result: No Definite Risk - Focused Exam Vital Signs: Vital Signs Temp Pulse Pulse Resp BP BP Pulse Ox 07/30/20 10:21 88 120/76 07/30/20 07:50 97.8 F 88 18 120/73 92 L 07/30/20 00:00 Pulse Ox 07/30/20 10:21 07/30/20 07:50 07/30/20 00:00 91 L - Problem List & Annotations (1) Acute anxiety SNOMED Code(s): 84998809, 77692603 Code(s): F41.9 - ANXIETY DISORDER, UNSPECIFIED Status: Acute Current Visit: No (2) CKD (chronic kidney disease) SNOMED Code(s): 891436286 Code(s): N18.9 - CHRONIC KIDNEY DISEASE, UNSPECIFIED Status: Acute Current Visit: No Qualifiers: Chronic kidney disease stage: stage 3 (moderate) (3) Bone metastases Status: Chronic Current Visit: No Annotation/Comment:: From lung cancer. (4) Lung cancer SNOMED Code(s): 995831946 Code(s): C34.90 - MALIGNANT NEOPLASM OF UNSP PART OF UNSP BRONCHUS OR LUNG Status: Chronic Current Visit: No (5) Prostate cancer SNOMED Code(s): 273060264 Code(s): C61 - MALIGNANT NEOPLASM OF PROSTATE Status: Chronic Current Visit: No - Problem List Review Problem List Initiated/Reviewed/Updated: Yes - My Orders Last 24 Hours: My Active Orders 07/30/20 08:06 Ondansetron [Zofran ODT] 4 mg PO Q6H PRN - Plan Plan:: 1. Continue PT/OT. 2. Reviewed his chart from [place]. Patient had rapid a flutter and therefore Cardizem and was added. He also has Flomax. Patient is been having orthostasis. I will hold or stop the Flomax for now. If that doesn't work consider decreasing the Cardizem and watch in his heart.
[2020-07-30] MEDS: Tamsulosin 0.4 MG Cap.ER PO SCH (20:01)
[2020-07-30] MEDS: atorvaSTATin 20 MG Tab PO SCH (20:36)
[2020-07-30] MEDS: Melatonin 3 MG Tab PO SCH (20:38)
[2020-07-31] MEDS: Pantoprazole 40 MG Tab.CR PO SCH (05:22)
[2020-07-31] MEDS: Arformoterol 15 MCG/2 ML Neb Soln INH SCH ×2 (08:34→20:19)
[2020-07-31] MEDS: Apixaban 5 MG Tab PO SCH ×2 (08:34→20:21)
[2020-07-31] MEDS: Atovaquone 750 MG/5 ML Susp 5 ML Packet PO SCH ×2 (08:34→17:25)
[2020-07-31] MEDS: Ipratropium 0.02% 0.5 MG/2.5 ML Neb Soln INH SCH ×4 (08:34→20:18)
[2020-07-31] MEDS: Diltiazem 120 MG Cap.CD PO SCH (08:35)
[2020-07-31] MEDS: Lactulose Soln 10 GM/15 ML 30 ML UD Cup PO SCH ×2 (08:35→20:21)
[2020-07-31] MEDS: Metoprolol Tartrate 50 MG Tab PO SCH ×2 (08:35→20:22)
[2020-07-31] MEDS: Nystatin Susp 100,000 Unit/ML 5 ML UD Cup PO SCH ×4 (08:35→20:24)
[2020-07-31] MEDS: predniSONE 20 MG Tab PO SCH (08:35)
[2020-07-31] MEDS: Polyethylene Glycol 3350 Powder 17 GM Packet PO SCH (08:35)
[2020-07-31] MEDS: Acetaminophen 325 MG Tab PO SCH ×2 (08:36→20:24)
[2020-07-31] MEDS: atorvaSTATin 20 MG Tab PO SCH (20:22)
[2020-07-31] MEDS: Melatonin 3 MG Tab PO SCH (20:23)
[2020-07-31] MEDS: fentaNYL 25 MCG/HR Transdermal Patch TRDERM SCH (20:33)
[2020-08-01] MEDS: Pantoprazole 40 MG Tab.CR PO SCH (05:08)
[2020-08-01] MEDS: Arformoterol 15 MCG/2 ML Neb Soln INH SCH ×2 (08:31→20:45)
[2020-08-01] MEDS: Ipratropium 0.02% 0.5 MG/2.5 ML Neb Soln INH SCH ×4 (08:32→20:45)
[2020-08-01] MEDS: Polyethylene Glycol 3350 Powder 17 GM Packet PO SCH (08:32)
[2020-08-01] MEDS: Atovaquone 750 MG/5 ML Susp 5 ML Packet PO SCH ×2 (08:32→17:33)
[2020-08-01] MEDS: Nystatin Susp 100,000 Unit/ML 5 ML UD Cup PO SCH ×4 (08:32→20:48)
[2020-08-01] MEDS: Diltiazem 120 MG Cap.CD PO SCH (08:32)
[2020-08-01] MEDS: Lactulose Soln 10 GM/15 ML 30 ML UD Cup PO SCH ×2 (08:32→20:45)
[2020-08-01] MEDS: Apixaban 5 MG Tab PO SCH ×2 (08:32→20:46)
[2020-08-01] MEDS: Metoprolol Tartrate 50 MG Tab PO SCH ×2 (08:33→20:46)
[2020-08-01] MEDS: predniSONE 20 MG Tab PO SCH (08:33)
[2020-08-01] MEDS: Acetaminophen 325 MG Tab PO SCH ×2 (08:33→20:48)
[2020-08-01] MEDS ORDERED: Magnesium Citrate Solution 296 ML Bottle PO ONE (13:58)
[2020-08-01] MEDS: atorvaSTATin 20 MG Tab PO SCH (20:46)
[2020-08-01] MEDS: Melatonin 3 MG Tab PO SCH (20:47)
[2020-08-02] MEDS: Pantoprazole 40 MG Tab.CR PO SCH (05:19)
[2020-08-02] MEDS: Atovaquone 750 MG/5 ML Susp 5 ML Packet PO SCH ×2 (07:57→18:19)
[2020-08-02] MEDS: Ipratropium 0.02% 0.5 MG/2.5 ML Neb Soln INH SCH ×4 (08:00→20:28)
[2020-08-02] MEDS: Diltiazem 120 MG Cap.CD PO SCH (08:01)
[2020-08-02] MEDS: Arformoterol 15 MCG/2 ML Neb Soln INH SCH ×2 (08:01→20:28)
[2020-08-02] MEDS: Apixaban 5 MG Tab PO SCH ×2 (08:02→20:28)
[2020-08-02] MEDS: Lactulose Soln 10 GM/15 ML 30 ML UD Cup PO SCH ×2 (08:02→20:28)
[2020-08-02] MEDS: predniSONE 10 MG Tab PO SCH (08:03)
[2020-08-02] MEDS: Metoprolol Tartrate 50 MG Tab PO SCH ×2 (08:04→20:29)
[2020-08-02] MEDS: Nystatin Susp 100,000 Unit/ML 5 ML UD Cup PO SCH ×4 (08:05→20:29)
[2020-08-02] MEDS: Polyethylene Glycol 3350 Powder 17 GM Packet PO SCH (08:05)
[2020-08-02] MEDS: Acetaminophen 325 MG Tab PO SCH ×2 (08:07→20:29)
[2020-08-02] MEDS ORDERED: Bisacodyl 10 MG Supp RECTAL PRN (08:42)
--- NOTE | 2020-08-02 08:45 | PCM.PN ---
- General Info Date of Service: 08/02/20 Admission Dx/Problem (Free Text): Patient has no concerns. He's not had a BM for quite a while. He was given mag citrate yesterday and he states he didn't have a BM. He has no fevers or chills. Little short of breath with cough at times. Nothing different than normal. No chest pain. He states she's not eating a lot. - Patient Data Vitals - Most Recent: Last Vital Signs Temp 97.5 F 08/01/20 08:30 Pulse 71 08/02/20 08:04 Resp 18 08/01/20 08:30 BP 130/74 08/02/20 08:04 Pulse Ox 92 L 08/01/20 08:30 Orthostatic Blood Pressure [ 90/54 Standing] Orthostatic Blood Pressure [ 115/70 Sitting] Orthostatic Blood Pressure [ 120/72 Supine] Weight - Most Recent: 175 lb 8 oz I&O - Last 24 Hours: Intake & Output 08/01/20 08/02/20 08/02/20 22:59 06:59 14:59 Output Total 15 37% Balance -14* -36/ Med Orders - Current: Current Medications Acetaminophen (Acetaminophen 325 Mg Tab) 650 mg PO BID [facility] Last Admin: 08/02/20 08:07 Dose: 650 mg Documented by: Apixaban (Apixaban 5 Mg Tab) 2.5 mg PO BID [facility] Last Admin: 08/02/20 08:02 Dose: 2.5 mg Documented by: Arformoterol Tartrate (Arformoterol 15 Mcg/2 Ml Neb Soln) 15 mcg INH Q12H [facility] Last Admin: 08/02/20 08:01 Dose: 15 mcg Documented by: Atorvastatin Calcium (Atorvastatin 20 Mg Tab) 20 mg PO BEDTIME [facility] Last Admin: 08/01/20 20:46 Dose: 20 mg Documented by: Atovaquone (Atovaquone 750 Mg/5 Ml Susp 5 Ml Packet) 750 mg PO BIDMEALS [facility] Last Admin: 08/02/20 07:57 Dose: 750 mg Documented by: Bisacodyl (Bisacodyl 10 Mg Supp) 10 mg RECTAL DAILY PRN PRN Reason: Constipation Diltiazem HCl (Diltiazem 120 Mg Cap.Cd) 120 mg PO DAILY [facility] Last Admin: 08/02/20 08:01 Dose: 120 mg Documented by: Fentanyl (Fentanyl 25 Mcg/Hr Transdermal Patch) 25 mcg TRDERM Q72H [facility] Last Admin: 07/31/20 20:33 Dose: 25 mcg Documented by: Ipratropium [place] (Ipratropium 0.02% 0.5 Mg/2.5 Ml Neb Soln) 0.5 mg INH QID [facility] Last Admin: 08/02/20 08:00 Dose: 0.5 mg Documented by: Lactulose (Lactulose Soln 10 Gm/15 Ml 30 Ml Ud Cup) 20 gm PO BID [facility] Last Admin: 08/02/20 08:02 Dose: 20 gm Documented by: Melatonin (Melatonin 3 Mg Tab) 6 mg PO BEDTIME [facility] Last Admin: 08/01/20 20:47 Dose: 6 mg Documented by: Metoprolol Tartrate (Metoprolol Tartrate 50 Mg Tab) 50 mg PO BID [facility] Last Admin: 08/02/20 08:04 Dose: 50 mg Documented by: Nitroglycerin (Nitroglycerin 0.4 Mg Tab.Sl) 0.4 mg SL ASDIRECTED PRN PRN Reason: Chest Pain Nystatin (Nystatin Susp 100,000 Unit/Ml 5 Ml Ud Cup) 5 ml PO QID [facility] Last Admin: 08/02/20 08:05 Dose: 5 ml Documented by: Ondansetron HCl (Ondansetron 4 Mg Tab.Dis) 4 mg PO Q6H PRN PRN Reason: Nausea/Vomiting Last Admin: 07/30/20 08:23 Dose: 4 mg Documented by: Pantoprazole Sodium (Pantoprazole 40 Mg Tab.Cr) 40 mg PO 0600 [facility] Last Admin: 08/02/20 05:19 Dose: 40 mg Documented by: Polyethylene Glycol (Polyethylene Glycol 3350 Powder 17 Gm Packet) 17 gm PO DAILY [facility] Last Admin: 08/02/20 08:05 Dose: 17 gm Documented by: Prednisone (Prednisone 10 Mg Tab) 30 mg PO DAILY [facility] Stop: 08/06/20 09:01 Last Admin: 08/02/20 08:03 Dose: 30 mg Documented by: Prednisone (Prednisone 20 Mg Tab) 20 mg PO DAILY [facility] Stop: 08/11/20 09:01 Prednisone (Prednisone 10 Mg Tab) 10 mg PO DAILY [facility] Stop: 08/16/20 09:01 Senna/Docusate Sodium (Docusate Sodium/Sennosides 50-8.6 Mg Tab) 1 tab PO BID [facility] Last Admin: 08/02/20 08:01 Dose: 1 tab Documented by: Discontinued Medications Bisacodyl (Bisacodyl 10 Mg Supp) 10 mg RECTAL ONETIME ONE Stop: 07/28/20 07:00 Last Admin: 07/28/20 09:24 Dose: 10 mg Documented by: Magnesium Citrate (Magnesium Citrate Solution 296 Ml Bottle) 296 ml PO ONETIME ONE Stop: 08/01/20 13:59 Last Admin: 08/01/20 14:27 Dose: 296 ml Documented by: Prednisone (Prednisone 20 Mg Tab) 40 mg PO DAILY [facility] Stop: 08/01/20 09:01 Last Admin: 08/01/20 08:33 Dose: 40 mg Documented by: Sodium Biphosphate/Sodium Phosphate (Sodium Phosphate,Monobasic/Sodium Phospha te,Dibasic Enema 133 Ml Bottle) 133 ml RECTAL ONETIME ONE Stop: 07/28/20 13:33 Last Admin: 07/28/20 14:03 Dose: 133 units Documented by: Sodium Biphosphate/Sodium Phosphate (Sodium Phosphate,Monobasic/Sodium Phosphate,Dibasic Enema 133 Ml Bottle) 133 ml RECTAL ONETIME ONE Stop: 07/28/20 17:34 Last Admin: 07/28/20 18:23 Dose: 133 ml Documented by: Tamsulosin HCl (Tamsulosin 0.4 Mg Cap.Er) 0.4 mg PO DAILY [facility] Last Admin: 07/30/20 20:01 Dose: Not Given Documented by: - Exam General: Alert, Oriented, Cooperative Lungs: Clear to Auscultation, Decreased Breath Sounds GI/Abdominal Exam: Normal Bowel Sounds, Soft, Distended - Patient Data Result Diagrams: 07/29/20 06:30 Sepsis Event Note - Evaluation Sepsis Screening Result: No Definite Risk - Focused Exam Vital Signs: Vital Signs Pulse BP 08/02/20 08:04 71 130/74 08/02/20 08:01 71 130/74 08/01/20 20:46 94 106/59 L - Problem List & Annotations (1) Acute anxiety SNOMED Code(s): 41461967, 15713019 Code(s): F41.9 - ANXIETY DISORDER, UNSPECIFIED Status: Acute Current Visit: No (2) CKD (chronic kidney disease) SNOMED Code(s): 776839040 Code(s): N18.9 - CHRONIC KIDNEY DISEASE, UNSPECIFIED Status: Acute Curre nt Visit: No Qualifiers: Chronic kidney disease stage: stage 3 (moderate) (3) Bone metastases Status: Chronic Current Visit: No Annotation/Comment:: From lung cancer. (4) Lung cancer SNOMED Code(s): 912456355 Code(s): C34.90 - MALIGNANT NEOPLASM OF UNSP PART OF UNSP BRONCHUS OR LUNG Status: Chronic Current Visit: No (5) Prostate cancer SNOMED Code(s): 075519778 Code(s): C61 - MALIGNANT NEOPLASM OF PROSTATE Status: Chronic Current Visit: No (6) Constipation SNOMED Code(s): 89431844 Code(s): K59.00 - CONSTIPATION, UNSPECIFIED Status: Acute Current Visit: Yes - Problem List Review Problem List Initiated/Reviewed/Updated: Yes - My Orders Last 24 Hours: My Active Orders 08/01/20 09:54 Renew/Continue Urinary Catheter [OM.PC] Routine 08/02/20 08:42 bisacodyL [Dulcolax] 10 mg RECTAL DAILY PRN - Assessment Assessment:: 1. Reviewed the medications for his BMs. He is on a fentanyl patch currently. 2. Start Dulcolax once a day when necessary for no BM. - Plan Plan:: 1. Continue PT/OT. 2. Reviewed his chart from [place]. Patient had rapid a flutter and therefore Cardizem and was added. He also has Flomax. Patient is been having orthostasis. I will hold or stop the Flomax for now. If that doesn't work consider decreasing the Cardizem and watch in his heart.
[2020-08-02] MEDS ORDERED: Sodium Phosphate,Monobasic/Sodium Phosphate,Dibasic Enema 133 ML Bottle RECTAL ONE (13:07)
--- NOTE | 2020-08-02 17:00 | CR ---
ABDOMEN TWO VIEWS [id number] INDICATION: Abdominal bloating. Six images of the abdomen were obtained in supine and right lateral decubitus projections 08/02/[address] of the abdomen from 07/19/2020 and abdomen x-ray from 03/16/2020. Dilated loops of what appear to be ascending colon including what appears to be a markedly dilated cecum are noted raising question of a cecal volvulus. The diameter may be as much as 12 cm or more. There is a moderate large amount of stool in the ascending colon with stool scattered throughout the remainder of the colon. Dilatation extends into the transverse colon. However, there is no significant dilatation of the descending colon and remainder of the more distal colon where barium from a previous video swallow is present. The barium extends as previously into the rectosigmoid and rectum. The appearance is felt to be most compatible with a severe paralytic ileus with multiple stepladder air-fluid levels in the right colon area and proximal transverse colon. A mechanically obstructive process is felt to be less likely but is difficult to entirely exclude. If present, a mechanically obstructive process could be at the level of the cecum or possibly transverse colon. Additional examination may be warranted such as colonoscopy depending upon clinical correlation. CT of the abdomen with oral and possibly rectal contrast, may also be helpful if felt to be tolerable for the patient by patient's caregivers. Report was called to Dr. Amezquita at 1150 ours 08/02/2020. The report was also discussed with Dr. Chris Olivo later in the day. [facility]
--- NOTE | 2020-08-02 18:06 | PCM.SN.2 ---
- Free Text/Narrative Note: I met with the patient and his son and daughter. He does not want any enemas. He's on clear liquids and surgery saw him to now much to offer other than fleets enema. He states he really doesn't want anything done with his abdomen. Did talk to him about participating in PT/OT to continue swing bed. He says he will think about it. His family is urging him. He is drinking some magnesium citrate currently. His kidney function is worse and his potassium is low but elevated. I offered to do some IV fluids but he refused.
--- NOTE | 2020-08-02 19:15 | CONS ---
DATE OF CONSULTATION: 08/02/2020 HISTORY OF PRESENT ILLNESS: This is an 84-year-old male who is seen today in consultation at the request of Dr. Amezquita. This patient is hospitalized in the swing bed for therapy after acute encephalopathy secondary to a fungal infection. He has a history of metastatic lung cancer. The patient was admitted on 07/27/2020. He has been noted to have abdominal distention and very minimal bowel function for the past several days. The patient indicates that he has not had very much bowel function over the last 2 weeks. He was noted to have abdominal distention today and abdominal x-rays were obtained. These are interpreted as showing marked dilation of the cecum as well as some dilation of the entire colon. There is some barium noted in the colon from a previous study performed several days ago. This has moved slightly, but remains in the left colon. Currently, the patient does feel abdominal distention, but is not having severe pain. He has had no nausea or vomiting. The patient's abdominal distention is somewhat chronic thing as previous studies have shown dilated colon in the past. PAST MEDICAL HISTORY: Includes multiple chronic medical conditions includin. Coronary artery disease with previous AL. 2. Hypertension. 3. Prostate cancer. 4. Metastatic lung cancer. 5. Melanoma. MEDICATIONS: His medication list reviewed. He is currently taking lactulose and MiraLAX in order to try and keep his bowels moving. He did receive a dose of laxative yesterday. He is also takin. Eliquis. 2. Probiotic. 3. Omeprazole. 4. Lipitor. 5. Metoprolol. SOCIAL HISTORY: He is a former smoker. PHYSICAL EXAMINATION: VITAL SIGNS: Temperature is 96.8, pulse 71, blood pressure is 130/74. GENERAL: The patient is an elderly male, he is in no acute distress. HEENT: Head is normocephalic. No scleral icterus. ABDOMEN: Does demonstrate distention primarily in the mid abdomen. Bowel sounds are hypoactive. There is a moderate degree of direct tenderness to palpation. IMPRESSION: Ileus with distended right colon. RECOMMENDATIONS: I would attempt to relieve this using medical management. Would consider Reglan and/or Fleet Enema. Also advised limiting diet to clear liquids and assuring chemistry studies including potassium are normalized. The patient would not be a candidate for any surgical procedure here because of his other medical conditions. If his status does not resolve or worsens, he may need transfer back to [facility] for definitive care. /[id number] JACOB/GAYATRI
[2020-08-02] MEDS: atorvaSTATin 20 MG Tab PO SCH (20:28)
[2020-08-02] MEDS: Melatonin 3 MG Tab PO SCH (20:29)
[2020-08-03] MEDS: Pantoprazole 40 MG Tab.CR PO SCH (06:26)
[2020-08-03] MEDS: Diltiazem 120 MG Cap.CD PO SCH (09:07)
[2020-08-03] MEDS: Atovaquone 750 MG/5 ML Susp 5 ML Packet PO SCH ×2 (09:08→17:21)
[2020-08-03] MEDS: Arformoterol 15 MCG/2 ML Neb Soln INH SCH ×2 (09:08→20:44)
[2020-08-03] MEDS: Ipratropium 0.02% 0.5 MG/2.5 ML Neb Soln INH SCH ×4 (09:08→20:43)
[2020-08-03] MEDS: Lactulose Soln 10 GM/15 ML 30 ML UD Cup PO SCH ×2 (09:09→20:47)
[2020-08-03] MEDS: Apixaban 5 MG Tab PO SCH ×2 (09:09→20:50)
[2020-08-03] MEDS: Metoprolol Tartrate 50 MG Tab PO SCH ×2 (09:10→20:51)
[2020-08-03] MEDS: Polyethylene Glycol 3350 Powder 17 GM Packet PO SCH (09:10)
[2020-08-03] MEDS: Nystatin Susp 100,000 Unit/ML 5 ML UD Cup PO SCH ×4 (09:11→20:52)
[2020-08-03] MEDS: predniSONE 10 MG Tab PO SCH (09:12)
[2020-08-03] MEDS: Acetaminophen 325 MG Tab PO SCH ×2 (09:13→20:52)
[2020-08-03] MEDS: atorvaSTATin 20 MG Tab PO SCH (20:51)
[2020-08-03] MEDS: Melatonin 3 MG Tab PO SCH (20:52)
[2020-08-03] MEDS: fentaNYL 25 MCG/HR Transdermal Patch TRDERM SCH (21:00)
[2020-08-04] MEDS: Pantoprazole 40 MG Tab.CR PO SCH (05:24)
[2020-08-04] MEDS: Polyethylene Glycol 3350 Powder 17 GM Packet PO SCH (08:27)
[2020-08-04] MEDS: Acetaminophen 325 MG Tab PO SCH ×2 (08:27→20:35)
[2020-08-04] MEDS: Arformoterol 15 MCG/2 ML Neb Soln INH SCH ×2 (08:27→20:25)
[2020-08-04] MEDS: Nystatin Susp 100,000 Unit/ML 5 ML UD Cup PO SCH ×4 (08:27→20:26)
[2020-08-04] MEDS: Lactulose Soln 10 GM/15 ML 30 ML UD Cup PO SCH ×2 (08:27→20:25)
[2020-08-04] MEDS: Ipratropium 0.02% 0.5 MG/2.5 ML Neb Soln INH SCH ×4 (08:27→20:36)
[2020-08-04] MEDS: Atovaquone 750 MG/5 ML Susp 5 ML Packet PO SCH ×2 (08:27→17:52)
[2020-08-04] MEDS: predniSONE 10 MG Tab PO SCH (08:28)
[2020-08-04] MEDS: Diltiazem 120 MG Cap.CD PO SCH (08:28)
[2020-08-04] MEDS: Metoprolol Tartrate 50 MG Tab PO SCH ×2 (08:29→20:28)
[2020-08-04] MEDS: Apixaban 5 MG Tab PO SCH ×2 (08:29→20:27)
[2020-08-04] MEDS: atorvaSTATin 20 MG Tab PO SCH (20:28)
[2020-08-04] MEDS: Melatonin 3 MG Tab PO SCH (20:34)
[2020-08-05] MEDS: Pantoprazole 40 MG Tab.CR PO SCH (05:56)
[2020-08-05] MEDS: Atovaquone 750 MG/5 ML Susp 5 ML Packet PO SCH ×3 (08:00→18:21)
[2020-08-05] MEDS: Arformoterol 15 MCG/2 ML Neb Soln INH SCH ×3 (09:26→21:10)
[2020-08-05] MEDS: Diltiazem 120 MG Cap.CD PO SCH ×3 (09:26→17:48)
[2020-08-05] MEDS: Ipratropium 0.02% 0.5 MG/2.5 ML Neb Soln INH SCH ×5 (09:26→21:10)
[2020-08-05] MEDS: Nystatin Susp 100,000 Unit/ML 5 ML UD Cup PO SCH (09:27)
[2020-08-05] MEDS: Metoprolol Tartrate 50 MG Tab PO SCH ×4 (09:27→21:10)
[2020-08-05] MEDS: predniSONE 10 MG Tab PO SCH ×2 (09:28→14:21)
[2020-08-05] MEDS: Acetaminophen 325 MG Tab PO SCH ×3 (09:28→21:10)
[2020-08-05] MEDS: Apixaban 5 MG Tab PO SCH ×3 (09:30→21:10)
[2020-08-05] MEDS: Polyethylene Glycol 3350 Powder 17 GM Packet PO SCH ×2 (09:31→14:21)
[2020-08-05] MEDS: Lactulose Soln 10 GM/15 ML 30 ML UD Cup PO SCH ×3 (09:31→21:10)
[2020-08-05] MEDS: Melatonin 3 MG Tab PO SCH (21:10)
[2020-08-05] MEDS: atorvaSTATin 20 MG Tab PO SCH (21:10)
[2020-08-06] MEDS: Pantoprazole 40 MG Tab.CR PO SCH (05:08)
[2020-08-06] MEDS ORDERED: Tuberculin, PPD 5 Units/0.1 ML 1 ML MDV IDERM ONE (08:00)
[2020-08-06] MEDS: Metoprolol Tartrate 50 MG Tab PO SCH (08:38)
[2020-08-06] MEDS: Apixaban 5 MG Tab PO SCH (08:38)
[2020-08-06] MEDS: Diltiazem 120 MG Cap.CD PO SCH (08:39)
--- NOTE | 2020-08-06 09:09 | PCM.DCSUM1 ---
Discharge Summary - Hospital Course Free Text/Narrative:: 84-year-old gentleman admitted to swing bed for occupational and physical therapy after extended inpatient care with multiple comorbidities including history of lung cancer, dysphagia, fungal lung infection. He has had some significant difficulties while he has been here. He was scheduled to have a urinary catheter removed but has elected to keep it in place due to significant weakness and difficulty with ambulating. He has had difficulty with maintaining occupational physical therapy schedules. He has not had a bowel movement in approximately 1 week but is refusing enemas. The subject of hospice has been raised but the patient is not ready to fully consider hospice at this time. Patient has been refusing medications intermittently. He is taking his antifungal medication and his cardiac medications as well as Eliquis. He has not been able to regain enough function to return home and has elected to go to nursing care at [facility] at this time. He has accepted occupational physical therapy at the snf at this time. He will be discharged to the snf with his urinary catheter in place, occupational and physical therapy, and medications as listed. Patient will be sent home on a full liquid diet. He is recommended to follow-up with his primary care physician within 1 week to discuss ongoing care and diet. HPI Initial Comments: 84-year-old gentleman admitted to longterm/swing bed for occupational physical therapy secondary to treatment for acute encephalopathy secondary to fungal lung infection likely secondary to dysphagia that caused him to have significantly reduced oral intake. He has a history of metastatic lung cancer. After his treatment inpatient he feels he is too weak to go home and will need some occupational physical therapy to regain his strength to see if he can go back home. He lives alone, he was approximately 2 years ago. Diagnosis: Stroke: No - Discharge Data Discharge Date: 08/06/20 Discharge Disposition: DC/Tfer to Group [facility] Condition: Fair - Referral to Home Health Primary Care Physician: Néstor Vasquez MD - Discharge Diagnosis/Problem(s) (1) Weakness SNOMED Code(s): 43799685 ICD Code: R53.1 - WEAKNESS Status: Acute Current Visit: Yes (2) Hyperlipidemia SNOMED Code(s): 71570438 ICD Code: E78.5 - HYPERLIPIDEMIA, UNSPECIFIED Status: Acute Current Visit: Yes (3) Obesity SNOMED Code(s): 919468774, 895506446 ICD Code: E66.9 - OBESITY, UNSPECIFIED Status: Acute Current Visit: Yes (4) Palliative care encounter SNOMED Code(s): 137305583, 440173873 ICD Code: Z51.5 - ENCOUNTER FOR PALLIATIVE CARE Status: Acute Current Visit: Yes (5) Bone metastases Status: Chronic Current Visit: No Problem Details: From lung cancer. (6) Chronic renal insufficiency, stage III (moderate) SNOMED Code(s): 704146056 ICD Code: N18.30 - CHRONIC KIDNEY DISEASE, STAGE 3 UNSPECIFIED Status: Chronic Current Visit: No (7) Lung cancer SNOMED Code(s): 020040208 ICD Code: C34.90 - MALIGNANT NEOPLASM OF UNSP PART OF UNSP BRONCHUS OR LUNG Status: Chronic Current Visit: No (8) Prostate cancer SNOMED Code(s): 586201456 ICD Code: C61 - MALIGNANT NEOPLASM OF PROSTATE Status: Chronic Current Visit: No (9) CAD (coronary artery disease) SNOMED Code(s): 15039929 ICD Code: I25.10 - ATHSCL HEART DISEASE OF [place] CORONARY ARTERY W/O ANG PCTRS Status: Acute Current Visit: Yes (10) Dysphagia SNOMED Code(s): 41667793, 822670390 ICD Code: R13.10 - DYSPHAGIA, UNSPECIFIED Status: Acute Current Visit: Yes (11) Hypoalbuminemia SNOMED Code(s): 754301740 ICD Code: E88.09 - OTH DISORDERS OF PLASMA-PROTEIN METABOLISM, NEC Status: Acute Current Visit: No - Patient Summary/Data Consults: Consultations 07/27/20 17:45 OT Evaluation and Treatment [CONS] Routine Please Evaluate and Treat. OT Reason for Consult: Strengthening This query below is only for informational purposes and is not editable. Admission Diagnosis/Problem: Weakness PT Evaluation and Treatment [CONS] Routine Please Evaluate and Treat. PT Reason for Consult: Strengthening This query below is only for informational purposes and is not editable. Admission Diagnosis/Problem: Weakness 08/02/20 12:24 Consult to Physician [CONS] Routine Consulting Provider: Chris Valdovinos Call Completed to Consulting Physician: No: The nurse said he was there and inform him. Reason for Consult: Illius - Patient Instructions Diet: Full Liquid Diet Activity: As Tolerated - Discharge Plan *PRESCRIPTION DRUG MONITORING PROGRAM REVIEWED*: No *COPY OF PRESCRIPTION DRUG MONITORING REPORT IN PATIENT TREE: No Prescriptions/Med Rec: Umeclidinium Brm/Vilanterol Tr [Anoro Ellipta 62.5-25 MCG] 1 puff IH DAILY #1 inhaler Atovaquone 750 mg PO BIDMEALS #700 ml Lactulose [Cephulac] 30 ml PO BID #900 ml Diltiazem HCl [Diltiazem 24Hr ER] 120 mg PO DAILY #30 cap fentaNYL [Duragesic] 25 mcg TD Q72H #10 patch.td72 Apixaban [Eliquis] 2.5 mg PO BID #60 tab Melatonin 6 mg PO BEDTIME #30 tab Metoprolol Tartrate 50 mg PO BID #60 tab predniSONE [Prednisone] 20 mg PO ASDIRECTED #8 tab Docusate Sodium/Sennosides [Senokot-S] 1 each PO BID #60 tab Acetaminophen [Tylenol] 650 mg PO BID #60 tab Ondansetron [Zofran ODT] 4 mg PO Q6H PRN #20 tab.dis PRN Reason: Nausea/Vomiting Home Medications: Home Meds Lactobacillus Acidophilus [Probiotic] 1 each PO DAILY 07/27/20 [History] Nitroglycerin [Nitrostat] 0.4 mg SL ASDIRECTED PRN 07/27/20 [History] Omeprazole 20 mg PO 0600 07/27/20 [History] atorvaSTATin [Lipitor] 20 mg PO BEDTIME 07/27/20 [History] polyethylene glycoL 3350 [MiraLAX] 17 gm PO DAILY 07/27/20 [History] Acetaminophen [Tylenol] 650 mg PO BID #60 tab 08/06/20 [Rx] Apixaban [Eliquis] 2.5 mg PO BID #60 tab 08/06/20 [Rx] Atovaquone 750 mg PO BIDMEALS #700 ml 08/06/20 [Rx] Diltiazem HCl [Diltiazem 24Hr ER] 120 mg PO DAILY #30 cap 08/06/20 [Rx] Docusate Sodium/Sennosides [Senokot-S] 1 each PO BID #60 tab 08/06/20 [Rx] Lactulose [Cephulac] 30 ml PO BID #900 ml 08/06/20 [Rx] Melatonin 6 mg PO BEDTIME #30 tab 08/06/20 [Rx] Metoprolol Tartrate 50 mg PO BID #60 tab 08/06/20 [Rx] Ondansetron [Zofran ODT] 4 mg PO Q6H PRN #20 tab.dis 08/06/20 [Rx] Umeclidinium Brm/Vilanterol Tr [Anoro Ellipta 62.5-25 MCG] 1 puff IH DAILY #1 inhaler 08/06/20 [Rx] fentaNYL [Duragesic] 25 mcg TD Q72H #10 patch.td72 08/06/20 [Rx] predniSONE [Prednisone] 20 mg PO ASDIRECTED #8 tab 08/06/20 [Rx] Oxygen Therapy Mode: Nasal Cannula Maintain SPO2% less than: 94 Maintain SpO2% greater than: 88 Patient Handouts: Fall Prevention in Hospitals, Adult, Venous Thromboembolism Prevention Referrals: Néstor Vasquez MD [Primary Care Provider] - - Discharge Summary/Plan Comment DC Time >30 min.: Yes Discharge Summary/Plan Comment: See hospital course. Patient is strongly advised to follow-up with his primary care physician within 1 week. Note that scopolamine patch has been added to help decrease secretions. - General Info Date of Service: 08/06/20 Admission Dx/Problem (Free Text: Patient has no concerns. He's not had a BM for quite a while. He was given mag citrate yesterday and he states he didn't have a BM. He has no fevers or chills. Little short of breath with cough at times. Nothing different than normal. No chest pain. He states she's not eating a lot. Subjective Update: Patient complains of some shortness of breath, abdominal pain, constipation Functional Status: Reports: Pain Controlled. Denies: Ambulating - Review of Systems General: Reports: Weakness, Malaise HEENT: Reports: Post Nasal Drip, Sinus Congestion Pulmonary: Reports: Shortness of Breath Cardiovascular: Reports: No Symptoms Gastrointestinal: Reports: Abdominal Pain, Constipation Genitourinary: Reports: No Symptoms Musculoskeletal: Reports: Back Pain Skin: Reports: No Symptoms Neurological: Reports: No Symptoms Psychiatric: Reports: No Symptoms - Patient Data Vitals - Most Recent: Last Vital Signs Temp 36.8 C 08/06/20 08:00 Pulse 152 H 08/06/20 08:39 Resp 22 H 08/06/20 08:00 BP 109/72 08/06/20 08:39 Pulse Ox 95 08/06/20 08:00 Orthostatic Blood Pressure [ 90/54 Standing] Orthostatic Blood Pressure [ 115/70 Sitting] Orthostatic Blood Pressure [ 120/72 Supine] Weight - Most Recent: 77.309 kg I&O - Last 24 hours: Intake & Output 08/05/20 08/06/20 08/06/20 22:59 06:59 14:59 Intake Total 340 Output Total 22% 30 Balance 131 -29* @ Lab Results - Last 24 hrs: Laboratory Results - last 24 hr 08/06/20 Range/Units 06:30 SARS-CoV-2 RNA (ERIK) Negative (NEGATIVE) Med Orders - Current: Current Medications Acetaminophen (Acetaminophen 325 Mg Tab) 650 mg PO BID [facility] Last Admin: 08/05/20 21:10 Dose: 650 mg Documented by: Apixaban (Apixaban 5 Mg Tab) 2.5 mg PO BID [facility] Last Admin: 08/06/20 08:38 Dose: 2.5 mg Documented by: Arformoterol Tartrate (Arformoterol 15 Mcg/2 Ml Neb Soln) 15 mcg INH Q12H [facility] Last Admin: 08/05/20 21:10 Dose: 15 mcg Documented by: Atorvastatin Calcium (Atorvastatin 20 Mg Tab) 20 mg PO BEDTIME [facility] Last Admin: 08/05/20 21:10 Dose: 20 mg Documented by: Atovaquone (Atovaquone 750 Mg/5 Ml Susp 5 Ml Packet) 750 mg PO BIDMEALS [facility] Last Admin: 08/05/20 18:21 Dose: Not Given Documented by: Bisacodyl (Bisacodyl 10 Mg Supp) 10 mg RECTAL DAILY PRN PRN Reason: Constipation Diltiazem HCl (Diltiazem 120 Mg Cap.Cd) 120 mg PO DAILY [facility] Last Admin: 08/06/20 08:39 Dose: 120 mg Documented by: Fentanyl (Fentanyl 25 Mcg/Hr Transdermal Patch) 25 mcg TRDERM Q72H [facility] Last Admin: 08/03/20 21:00 Dose: 25 mcg Documented by: Ipratropium [place] (Ipratropium 0.02% 0.5 Mg/2.5 Ml Neb Soln) 0.5 mg INH QID [facility] Last Admin: 08/05/20 21:10 Dose: 0.5 mg Documented by: Lactulose (Lactulose Soln 10 Gm/15 Ml 30 Ml Ud Cup) 20 gm PO BID [facility] Last Admin: 08/05/20 21:10 Dose: Not Given Documented by: Melatonin (Melatonin 3 Mg Tab) 6 mg PO BEDTIME [facility] Last Admin: 08/05/20 21:10 Dose: 6 mg Documented by: Metoprolol Tartrate (Metoprolol Tartrate 50 Mg Tab) 50 mg PO BID [facility] Last Admin: 08/06/20 08:38 Dose: 50 mg Documented by: Nitroglycerin (Nitroglycerin 0.4 Mg Tab.Sl) 0.4 mg SL ASDIRECTED PRN PRN Reason: Chest Pain Ondansetron HCl (Ondansetron 4 Mg Tab.Dis) 4 mg PO Q6H PRN PRN Reason: Nausea/Vomiting Last Admin: 07/30/20 08:23 Dose: 4 mg Documented by: Pantoprazole Sodium (Pantoprazole 40 Mg Tab.Cr) 40 mg PO 0600 [facility] Last Admin: 08/06/20 05:08 Dose: 40 mg Documented by: Polyethylene Glycol (Polyethylene Glycol 3350 Powder 17 Gm Packet) 17 gm PO DAILY [facility] Last Admin: 08/05/20 14:21 Dose: Not Given Documented by: Prednisone (Prednisone 20 Mg Tab) 20 mg PO DAILY [facility] Stop: 08/11/20 09:01 Prednisone (Prednisone 10 Mg Tab) 10 mg PO DAILY [facility] Stop: 08/16/20 09:01 Senna/Docusate Sodium (Docusate Sodium/Sennosides 50-8.6 Mg Tab) 1 tab PO BID [facility] Last Admin: 08/05/20 21:10 Dose: Not Given Documented by: Discontinued Medications Bisacodyl (Bisacodyl 10 Mg Supp) 10 mg RECTAL ONETIME ONE Stop: 07/28/20 07:00 Last Admin: 07/28/20 09:24 Dose: 10 mg Documented by: Magnesium Citrate (Magnesium Citrate Solution 296 Ml Bottle) 296 ml PO ONETIME ONE Stop: 08/01/20 13:59 Last Admin: 08/01/20 14:27 Dose: 296 ml Documented by: Nystatin (Nystatin Susp 100,000 Unit/Ml 5 Ml Ud Cup) 5 ml PO QID [facility] Last Admin: 08/05/20 09:27 Dose: Not Given Documented by: Prednisone (Prednisone 20 Mg Tab) 40 mg PO DAILY [facility] Stop: 08/01/20 09:01 Last Admin: 08/01/20 08:33 Dose: 40 mg Documented by: Prednisone (Prednisone 10 Mg Tab) 30 mg PO DAILY [facility] Stop: 08/06/20 09:01 Last Admin: 08/05/20 14:21 Dose: Not Given Documented by: Sodium Biphosphate/Sodium Phosphate (Sodium Phosphate,Monobasic/Sodium Phosphate,Dibasic Enema 133 Ml Bottle) 133 ml RECTAL ONETIME ONE Stop: 07/28/20 13:33 Last Admin: 07/28/20 14:03 Dose: 133 units Documented by: Sodium Biphosphate/Sodium Phosphate (Sodium Phosphate,Monobasic/Sodium Phosphate,Dibasic Enema 133 Ml Bottle) 133 ml RECTAL ONETIME ONE Stop: 07/28/20 17:34 Last Admin: 07/28/20 18:23 Dose: 133 ml Documented by: Sodium Biphosphate/Sodium Phosphate (Sodium Phosphate,Monobasic/Sodium Phosphate,Dibasic Enema 133 Ml Bottle) 133 ml RECTAL ONETIME ONE Stop: 08/02/20 13:08 Last Admin: 08/02/20 15:12 Dose: Not Given Documented by: Tamsulosin HCl (Tamsulosin 0.4 Mg Cap.Er) 0.4 mg PO DAILY [facility] Last Admin: 07/30/20 20:01 Dose: Not Given Documented by: Tuberculin PPD (Tuberculin, Ppd 5 Units/0.1 Ml 1 Ml Mdv) 5 unit IDERM ONETIME ONE Stop: 08/06/20 08:01 Last Admin: 08/06/20 08:50 Dose: 5 unit Documented by: Comments:: Patient is lying in bed supine with nasal cannula. Patient appears to be having some shortness of breath with nasal congestion - Exam Quality Assessment: Reports: Supplemental Oxygen, DVT Prophylaxis, Skin Breakdown General: Reports: Alert, Oriented, Cooperative HEENT: Reports: EOMI Lungs: Reports: Rales. Denies: Rhonchi, Wheezing Cardiovascular: Reports: Irregular Rhythm, Tachycardia GI/Abdominal Exam: Distended, Tender Extremities: Normal Inspection Skin: Reports: Warm, Dry Neurological: Reports: No New Focal Deficit Psy/Mental Status: Reports: Alert, Agitated
[2020-08-06] MEDS: Acetaminophen 325 MG Tab PO SCH (11:03)
[2020-08-06] MEDS: Atovaquone 750 MG/5 ML Susp 5 ML Packet PO SCH (11:03)
[2020-08-06] MEDS: Ipratropium 0.02% 0.5 MG/2.5 ML Neb Soln INH SCH (11:03)
[2020-08-06] MEDS: Polyethylene Glycol 3350 Powder 17 GM Packet PO SCH (11:03)
[2020-08-06] MEDS: predniSONE 10 MG Tab PO SCH (11:03)
[2020-08-06] MEDS: Arformoterol 15 MCG/2 ML Neb Soln INH SCH (11:03)
[2020-08-06] MEDS: Lactulose Soln 10 GM/15 ML 30 ML UD Cup PO SCH (11:03)
[2020-08-07] MEDS ORDERED: predniSONE 20 MG Tab PO SCH (09:00)
[2020-08-12] MEDS ORDERED: predniSONE 10 MG Tab PO SCH (09:00)
== END 2020-08-06 10:30 | DRG 948 ==
LOC: FB.MS 15:02
PROVIDERS: ADMIT Student in an Organized Health Care Education/Training Program; ATTEND Student in an Organized Health Care Education/Training Program
DX: R53.1 Weakness (principal); C34.90 Malignant neoplasm of unspecified part of unspecified bronchus or lung; C79.51 Secondary malignant neoplasm of bone; R13.10 Dysphagia, unspecified; E78.5 Hyperlipidemia, unspecified; E66.9 Obesity, unspecified; Z51.5 Encounter for palliative care; N18.30 Chronic kidney disease, stage 3 unspecified; I25.10 Atherosclerotic heart disease of native coronary artery without angina pectoris; E88.09 Other disorders of plasma-protein metabolism, not elsewhere classified; H54.7 Unspecified visual loss; I25.2 Old myocardial infarction; Z85.118 Personal history of other malignant neoplasm of bronchus and lung; Z79.01 Long term (current) use of anticoagulants; Z85.46 Personal history of malignant neoplasm of prostate; Z79.899 Other long term (current) drug therapy; Z79.52 Long term (current) use of systemic steroids; Z87.891 Personal history of nicotine dependence; Z87.442 Personal history of urinary calculi; Z85.05 Personal history of malignant neoplasm of liver; Z85.820 Personal history of malignant melanoma of skin; F41.9 Anxiety disorder, unspecified; K59.00 Constipation, unspecified; I12.9 Hypertensive chronic kidney disease with stage 1 through stage 4 chronic kidney disease, or unspecified chronic kidney disease; Z68.23 Body mass index [BMI] 23.0-23.9, adult; Z20.822 Contact with and (suspected) exposure to COVID-19
CPT/HCPCS: 36415; 74019; 80048; 80053; 86580; 94150; 94640; 97110-GO; 97110-GP; 97162-GP; 97165-GO; 97530-GO; 97530-GP; 97535-GO; A9270-GY; J7512; J7605; U0002